=== PATIENT | female | born 1960 | race Caucasian/White ===

== ENCOUNTER → 2019-12-01 10:46 | Outpatient (BNVA) | payer MEDICAID, SELFPAY | PROVIDERS: Family Provider Family Medicine; PCP Family Medicine; Visit Provider Anesthesiology | DX: G89.29 Other chronic pain (principal); M43.17 Spondylolisthesis, lumbosacral region; M19.90 Unspecified osteoarthritis, unspecified site; F17.210 Nicotine dependence, cigarettes, uncomplicated; Z79.891 Long term (current) use of opiate analgesic | CPT/HCPCS: 99204 ==

== ENCOUNTER 2020-06-27 09:19 | Observation (INO) | payer MEDICAID, SELFPAY ==
[2020-06-25 09:37] VITALS: BMI 22.6
--- NOTE | 2020-06-25 10:23 | ANES.PREANE2 ---
Pre-Anesthetic Assessment Pre-Anesthetic Assessment: Height/Weight: Height 1.68 m Weight 63.503 kg Preop Diagnosis: POP-Q stage 2 cystocele Proposed Procedure: Operation Date: 06/27/20 07:00 Proposed Procedures p Total Vaginal Hysterectomy [facility]/[id number] N81.10 R32(Not Applicable) - Claudy Mcneil MD s Anterior Repair Anterior Colporrhaphy(Not Applicable) - Claudy Mcneil MD s Sling/Midurethral single incision sling/Sacrospinal ligament fixation(Not Applicable) - Claudy Mcneil MD Familial anesthetic complications: none Social: Packs per day: 1 Pack years: years Exam: Pre-Anes Outpt Exam: alert, oriented x 3 and clear to auscultation bilaterally Additional Exam Findings (including area of procedure): expiratory wheezes Airway: Submandibular: WNL Cervical ROM: WNL MP: 1 Dentition: Partials (uppers) Pulmonary: Pulmonary: Cough GI: GI: GERD (well controlled) Anesthetic Plan: ASA status: 3 Anesthesia: Anesthesia Evaluation and General PFSH Anesthesia PFSH: Medical History Arthritis Current every day smoker Urinary incontinence Surgical History H/O breast biopsy Family History Mother Breast cancer, Onset Age: 82 Ovarian cancer Uterine cancer Hyperlipidemia Sister Breast cancer Ovarian cancer Uterine cancer Clotting disorder Stroke Thyroid condition Father Anesthesia complication Brother Clotting disorder CAD (coronary artery disease) Son Diabetes Denies family history of Bleeding disorder Hypertension Social History (Updated 06/25/20 @ 08:03 by Moni Carreon RN) Smoking and tobacco status: current every day smoker cigarettes Packs smoked per day: 1 Alcohol intake: current Alcohol intake frequency: holidays/special occasions only Alcohol type: hard liquor Substance/Drug Use: never Data Anesthesia CBC & Chem 7: 06/25/20 09:55 Cardiac Studies: No Data to Display
[2020-06-25 10:59] LABS: Basophils # 0.1 10^3/uL (0.0-0.1); Eosinophils # 0.1 10^3/uL (0.0-0.8); Eosinophils % 1.5 %; Hematocrit 44.3 % (37.0-47.0); Hemoglobin 14.5 g/dL (11.5-15.3); Lymphocytes # 2.2 10^3/uL (0.8-4.8); Lymphocytes % 25.7 %; Mean Corpuscular HGB Conc 32.7 g/dL (30.0-36.0); Mean Corpuscular Volume 91.7 fL (81-99); Mean Platelet Volume 10.4 fL (7.4-10.4); Monocytes # 0.4 10^3/uL (0.2-0.9); Monocytes % 5.1 %; Neutrophils # 5.78 10^3/uL (1.8-7.7); Neutrophils % 66.5 %; Nucleated Red Blood Cells % 0 %; Platelet Count 450 10^3/cmm (130-400); Red Blood Count 4.83 10^6/uL (4.1-5.3); Red Cell Distribution Width 11.7 % (12.1-15.1); White Blood Count 8.7 10^3/uL (4.0-10.0)
[2020-06-25 12:36] LABS: Add Urine Microscopic? NO
[2020-06-25 12:40] LABS: Bilirubin Urine Neg (NEGATIVE); Blood Urine Neg (Negative); Glucose Urine UA Norm (Normal); Ketones Urine Negative (Negative); Leukocyte Esterase Urine Negative (Negative); Nitrate Urine Negative (Negative); Protein Urine Neg (Negative); Specific Gravity, Urine 1.015 (1.005-1.030); Urine Appearance Clear (CLEAR); Urine Color Yellow (Yellow); Urobilinogen Urine Norm (Negative); pH Urine 6.5 (5-7)
[2020-06-27] VITALS (19 sets, daily range): BP systolic 111–147; BP diastolic 70–101; PULSE 86–99; RESP 13–22; TEMP 36.4–37; O2SAT 93–99
--- NOTE | 2020-06-27 06:39 | W.PM.OPSUD ---
Surgery/Procedure H&P Update DATE OF PROCEDURE: June 27, 2020 DATE H&P PERFORMED: 06/25/20 H&P UPDATE INFORMATION: I have reviewed H&P completed within last 30 days, I have examined patient prior to procedure and No changes to prior documentation PREOP DIAGNOSIS: POP-Q stage 2 cystocele PLANNED PROCEDURE: Operation Date: 06/27/20 07:00 Proposed Procedures p Total Vaginal Hysterectomy TV/[id number] N81.10 R32(Not Applicable) - Claudy Mcneil MD s Anterior Repair Anterior Colporrhaphy(Not Applicable) - Claudy Mcneil MD s Sling/Midurethral single incision sling/Sacrospinal ligament fixation(Not Applicable) - Claudy Mcneil MD
[2020-06-27] MEDS: scopolamine 1.5 Patch 1 PATCH TRANSDERMA (07:05)
[2020-06-27] MEDS: sodium chloride 0.9% 1,000 ML 30 ML IV (07:06)
[2020-06-27] MEDS: metroNIDAZOLE IV 500 MG/100 ML PREMIX 100 MG IV (07:19)
--- NOTE | 2020-06-27 07:36 | SUR.PREOP ---
pt arrived at 0615 from registration and stated she was here at 0550 and didn't know who to ask for information pt had 1000 cc of soap suds enema per dr barbour's order and unable to give lr for iv due to not loaded in pyxis 0630 dr barbour here and no orders for antibiotic,order put in computer
[2020-06-27 07:46] LABS: Alanine Aminotransferase 19 U/L (0-33); Albumin Level 4.4 g/dL (3.5-5.2); Alkaline Phosphatase 154 IU/L (35-105); Anion Gap 13.8 (5-19); Aspartate Amino Transferase 25 U/L (0-32); Blood Urea Nitrogen 12 mg/dL (8-23); Calcium 9.1 mg/dL (8.5-10.5); Carbon Dioxide 25 mmol/L (22-29); Chloride 104 mmol/L (98-107); Globulin 3.4 g/dL (1.3-4.6); Glucose 132 mg/dL (65-115); Osmolality Calculated 286 mOsm/kg (285-295); Potassium 3.8 mmol/L (3.5-5.1); Sodium 139 mmol/L (136-145); Total Bilirubin 0.2 mg/dL (0.15-1.2); Total Protein 7.8 g/dL (6.6-8.7)
[2020-06-27] MEDS: estrogens Conjugated Cream 30 gm 1 APPLIC VAGINAL (09:20)
--- NOTE | 2020-06-27 09:22 | P.OP_ITS ---
Operative Report Date of procedure: June 27, 2020 Pre-op Diagnosis: POP-Q stage 2 cystocele Post-op diagnosis: same Procedure Done: Vaginal hysterectomy with bilateral uterosacral ligament suspension and mid urethral sling Specimens removed/disposition: Uterus Surgeon: Claudy Mcneil Anesthesia: General Estimated blood loss (mL): 50 IV fluids (mL): 1,200 Urine output (mL): 200 Complications: None Condition: stable Disposition: PACU Brief History: 60-year-old femaleWith urinary stress incontinence and cystocele stage II Procedure: After informed consent and risks, benefits, indications and alternatives reviewed with the patient was taken to the operating room. The patient was placed in dorsal lithotomy position prepped, and draped in the usual sterile fashion. The pre-procedure timeout verifying the correct patient, procedure, site and side, could not requirements was performed and acknowledge by the OR team. A Nelson catheter was placed. A Bookwalter vaginal retractor was placed into the vagina in usual manner visualize the cervix. Cervix was grasped with a single tooth tenaculum and circumferentially infiltrated with 1% Xylocaine with epinephrine. Then cervix was circumferentially incised with bovie and the bladder was dissected off the pubovesical cervical fascia anteriorly with a sponge stick and Metzenbaum scissors. The anterior peritoneal reflection was identified and the anterior cul-de-sac was entered sharply with Metzenbaum scissors. The same procedure was performed posteriorly and a posterior colpotomy was made through the posterior cul-de-sac space without difficulty and the posterior blade of the Bookwalter vaginal retractor was adv anced posteriorly into the cul-de-sac. At this time, the left and right uterosacral ligaments were isolated and ligated with 0 Vicryl. The Enseal device was placed over the uterosacral ligaments on either side and was then used in a serial fashion up through the cardinal ligaments bilaterally cross-clamped, cut, and sealed with the Enseal device. Finally, the uterine arteries were cross-clamped, cut, sealed and ligated with the Enseal device. Hemostasis was assured. The broad ligaments were then serially clamped, sealed and cut with the Enseal device on both sides. Excellent hemostasis was visualized. Both cornua were clamped, sealed and cut with the Enseal device. Then the pedicles were then suture ligated with excellent hemostasis. The uterus was excised and submitted for pathologic evaluation. No other abnormalities were noted in the pelvic cavity. The peritoneum was then closed in a pursestring fashion with 0 Vicryl suture. The vaginal cuff angles were closed with [id number] #0 Vicryl suture on both sides and transfixed with the ipsilateral cardinal and uterosacral ligaments. The remainder of the vaginal cuff was closed with #0 Vicryl in a running locked fashion. At this time, instruments were removed from the vagina at hemostasis assured. The anterior vaginal mucosa beneath the midurethra was infiltrated with 0.5% Marcaine with epinephrine. A vertical midline incision was made beneath the midurethra, nearly 1.5 cm length. Careful submucosal dissection was performed bilaterally up to the interior portion of the inferior pubic ramus. The insertion of adductor longus tendon on the patient?s pubic ramus was identified as reference land antonette. Palpated the notch along the internal edge of ischiopubic ramus where the adductor longus tendon and the inferior pubic ramus meet. The needle of the SIS inserted aiming at the location of this notch. One of the integrated self-fixating tips place onto the needle by sliding it over the end of the needle. The needle/sling assembly was inserted toward the location of identified reference notch making sure that the flat of the handle is perpendicular to the desired path. The needle was tracked along the posterior surface of the ischiopubic ramus until the midline antonette on the mesh is approximately at the midline position under the urethra. The needle was removed and the same was repeated on the contralateral side until the appropriate sling tension under the urethra was achieved ensuring that the mesh lays flat. The needle was removed and vaginal incision was closed in a running interlocking fashion with 2-0 Vicryl. Then the Nelson catheter was removed and cystoscope was inserted. The bladder was filled with sterile water. Complete evaluation of the bladder mucosa was performed noting no lacerations, dimpling, tears, bleeding of the mucosa or muscular layers. Both ureteral orifices were identified. Prompt excretion of urine from both ureteral orifices was noted. Cystoscope was withdrawn. Nelson catheter was then placed yielding clear sosa urine. A vaginal packing with Premarin cream was placed and the patient was taken out of dorsal lithotomy position and awakened from the general anesthesia. The patient tolerated the procedure well and was taken to the PACU recovery room in a stable condition. Sponge, lap, needle and instruments counts were correct x3.
[2020-06-27] MEDS: ondansetron 2 mg/ML SDV 2 mL 4 MG IVP ×2 (09:23→09:30)
[2020-06-27] MEDS: metoclopramide 5 mg/mL SDV 2 mL 10 MG IVP ×2 (09:39→09:46)
[2020-06-27] MEDS: dexamethasone 4 mg/mL INJ IVP (09:52)
[2020-06-27] MEDS: dextrose 5%-lactated ringers 1,000 ML 125 ML IV ×2 (15:25→23:54)
[2020-06-27] MEDS: ketorolac 30 mg/mL INJ IVP ×2 (16:28→23:56)
[2020-06-27] MEDS: docusate sodium 100 mg Capsule PO (18:24)
[2020-06-27] MEDS: fluticasone nasal spray 16gm Btl 1 SPRAY INTRANASAL (18:24)
[2020-06-27] MEDS: gabapentin 400 mg Capsule 800 MG PO (18:24)
--- NOTE | 2020-06-27 21:12 | PC.NURSE ---
this tech ambulated pt in hallway. 2 laps. no issues. pt asked for h/a meds and something salty since she was craving a cigarette. pt nurse notified.
[2020-06-27] MEDS: acetaminophen 325 mg Tablet 650 MG PO (21:21)
[2020-06-28 00:25] VITALS: PULSE 91; RESP 18; O2SAT 95
[2020-06-28 06:00] VITALS: BP 119/72; PULSE 77; RESP 16; TEMP 36.8; O2SAT 96
[2020-06-28 06:03] LABS: Hematocrit 34.5 % (37.0-47.0); Mean Corpuscular HGB Conc 31.9 g/dL (30.0-36.0); Mean Platelet Volume 10.2 fL (7.4-10.4); Platelet Count 320 10^3/cmm (130-400); Red Blood Count 3.67 10^6/uL (4.1-5.3); Red Cell Distribution Width 11.5 % (12.1-15.1); White Blood Count 14.7 10^3/uL (4.0-10.0)
[2020-06-28] MEDS: dextrose 5%-lactated ringers 1,000 ML 125 ML IV (07:57)
[2020-06-28] MEDS: HYDROcodone-acetaminophen 5-325 mg Tablet PO (07:57)
[2020-06-28 09:39] VITALS: PULSE 89; RESP 18; O2SAT 92
[2020-06-28] MEDS: cetirizine 10 mg Tablet PO (09:47)
[2020-06-28] MEDS: docusate sodium 100 mg Capsule PO (09:47)
[2020-06-28] MEDS: duloxetine 30 mg Capsule PO (09:47)
[2020-06-28] MEDS: gabapentin 400 mg Capsule 800 MG PO (09:47)
[2020-06-28] MEDS: fluticasone nasal spray 16gm Btl 1 SPRAY INTRANASAL (09:47)
[2020-06-28] MEDS: pantoprazole DR 40 mg Tablet PO (09:47)
[2020-06-28] MEDS: meloxicam 7.5 mg tablet 15 MG PO (09:47)
[2020-06-28] MEDS: montelukast sodium 10 mg Tablet PO (09:47)
[2020-06-28 09:51] VITALS: BP 143/77; PULSE 92; RESP 15
--- NOTE | 2020-06-28 10:56 | PM.OBGYDC ---
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 DEVELOPER Date of Admission: 06/27/20 09:19 Date of Discharge: 06/28/20 Attending Provider at Admission: Claudy Mcneil MD Attending Provider at Discharge: Claudy Mcneil MD Primary Care Provider: Jerzy Schafer MD Diagnoses at Discharge Discharge Diagnosis (1) POP-Q stage 2 cystocele: Status: Acute (2) MERLE (stress urinary incontinence, female): Status: Acute Reason for Visit Reason for Visit: Cystocele stage 2 urinary incontinence Hospital Course Hospital Course: 60-year-old female admitted for cystocele stage II a stress urinary incontinence for a total vaginal hysterectomy and mid urethral sling. Total vaginal hysterectomy with uterosacral ligament suspension and mid urethral sling were performed without complications. Overnight postop observation was uneventful. Patient denies any significant pain, or vaginal bleeding. Voiding without difficulty. Tolerating diet well. Ambulating without difficulty Physical Exam Narrative: EXAM NARRATIVE: GA: Alert and oriented ?3. HEENT: WNL. Heart: Regular rate and rhythm. Lungs: Clear to auscultation bilaterally. Abdomen: Bowel sounds present, nontender, minimal tenderness, pain or edema. TARGET WORKER: No bleeding. Extremities: No edema, no cyanosis, no calves pain. Urinary Catheter Management^: Nelson: Cath Placed During This Visit: yes Urinary Catheter Date of Insertion: 06/27/20 Urinary Catheter Time of Insertion: 08:00 Discharge Data Data Completed and Pending: Pending at discharge Category Date Time Status Pathology: Surgic al [PTH] Routine Pth 06/27/20 08:29 Received Labs from last 24 hours 06/28/20 06/28/20 06:00 05:15 WBC 14.7 H Cancelled Corrected WBC Cancelled RBC 3.67 L Cancelled Hgb 11.0 L Cancelled Hct 34.5 L Cancelled MCV 94.0 Cancelled MCH 30.0 Cancelled MCHC 31.9 Cancelled RDW 11.5 L Cancelled Plt Count 320 Cancelled MPV 10.2 Cancelled Vitals: Last Vital Signs Temp 98.2 F 06/28/20 06:00 Pulse 92 06/28/20 09:51 Resp 15 06/28/20 09:51 BP 143/77 06/28/20 09:51 Pulse Ox 92 06/28/20 09:39 Discharge Plan Discharge Patient Disposition: Home Condition: Stable Prescriptions: New ibuprofen 800 mg tablet 800 mg PO TID PRN (Reason: pain) Qty: 60 RF: 0 Continued buspirone 5 mg tablet 5 mg PO ONCE PRN (Reason: Anxiety) RF: 0 duloxetine [Cymbalta] 30 mg capsule,delayed release(DR/EC) 30 mg PO DAILY RF: 0 fluticasone propionate 50 mcg/actuation spray,suspension 1 spray INTRANASAL BID RF: 0 gabapentin 800 mg tablet 800 mg PO BID RF: 0 meloxicam 15 mg tablet 15 mg PO DAILY RF: 0 Prilosec OTC 20 mg tablet,delayed release (DR/EC) 20 mg PO DAILY RF: 0 promethazine 25 mg tablet 25 mg PO QID PRN (Reason: Nausea) RF: 0 montelukast [Singulair] 10 mg tablet 10 mg PO DAILY RF: 0 cetirizine 10 mg tablet 10 mg PO DAILY RF: 0 eletriptan [Relpax] 20 mg tablet 20 mg PO DAILY PRN (Reason: Migraine Headache) RF: 0 albuterol sulfate [Proventil HFA] 90 mcg/actuation HFA aerosol inhaler 2 puff INHALATION QID PRN (Reason: asthma) RF: 0 Discharge Orders: Discharge Order (Routine); Ordered 06/28/20 Ordered By: Claudy Mcneil Referrals: Claudy Mcneil MD [Physician] - 07/09/20 3:00 pm (* Your 2 week incision check is with Dr. Mcneil on 07/09/2020 at 3:00pm. * Your 6 week follow up appointment is with Dr. Mcneil on 08/07/2020 at 2:15pm.) Discharge Diet: As Directed Discharge Activity: Increase activity as tolerated Patient Instructions: Vaginal Hysterectomy (DC), OB Abdominal Surgery - [facility], OB Discharge Report, OB Anesthesia Instructions, OB Food/Drug Interaction Guide Activity Restrictions/Additional Instructions: Pelvic rest for 6 weeks (no sex, no tampons, no vaginal douches). Return to the emergency room if any fever, increased bleeding or pain. 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
[2020-06-28 11:21] VITALS: BP 143/77; PULSE 92; RESP 15
--- NOTE | 2020-06-29 11:56 | PC.RESP ---
Smoking Cessation sent to patient.
== END 2020-06-28 11:30 | disposition home or self-care (01) ==
LOC: OBGYN 09:19
PROVIDERS: Admitting Provider Obstetrics & Gynecology; PCP Family Medicine; Visit Provider Obstetrics & Gynecology
PROC: (CPT 57283; principal; 2020-06-27 07:00)
PROC: (CPT 57288; 2020-06-27 07:00)
DX: N39.3 Stress incontinence (female) (male) (principal); N81.10 Cystocele, unspecified; F17.210 Nicotine dependence, cigarettes, uncomplicated
CPT/HCPCS: 57283; 57288; 58260; 12345; 36415; 51702; 51798; 80053; 81003; 85025; 85027; 86850; 86900; 88307; 96361; 96365; 96366; 96375; C1713; G0378; J1100; J1580; J1885; J2370; J2405; J2704; J2710; J2765; J3010; J3490; J7030; S0030

== ENCOUNTER 2020-07-18 09:40 | Observation (INO) | payer MEDICAID, SELFPAY ==
[2020-07-18] VITALS (27 sets, daily range): BP systolic 70–148; BP diastolic 45–100; PULSE 86–107; RESP 15–22; TEMP 36.2–37.1; O2SAT 93–100; BMI 24.0
--- NOTE | 2020-07-18 10:02 | ED_ITS ---
HPI - Female Genitourinary General: Chief complaint: Vaginal Bleeding Stated complaint: HEAVY BLEEDING Time Seen by Provider: 07/18/20 09:46 History of Present Illness: HPI Narrative: 60-year-old female who presents to the emergency room with a complaint of vaginal bleeding. Vaginal bleeding began overnight and has been extremely heavy EMS reports 250-350 mils in the bed at the time they arrived she is probably had another 200+ mils since then when I initially examined her after arrival here. States she had a laparoscopic- assisted vaginal hysterectomy on 06/27/2020 had been doing well up until now she is not on any blood thinners. Denies any sexual intercourse or any thing intravaginal. MD elicited complaint: vaginal bleeding Pertinent past history: hysterectomy Onset (ago): hour(s) Location of symptoms: vaginal Severity: moderate Female Urogenital Radiation: Non-Radiating Quality of pain: cramping Consistency: intermittent Vaginal discharge: none Vaginal bleeding: heavy and bright red Exacerbating factors: none Relieving factors: none Associated symptoms: Reports abdominal pain; Deny short of breath, fevers/chills, headache(s), nausea, rash, seizures, syncope, vaginal discharge or weakness Review of Systems Const: Denies: fever(s), chills, body aches, change in appetite, fatigue or malaise ENMT: Denies: throat pain, ear or mastoid pain, nasal discharge or nasal congestion Card: Denies: syncope Resp: Denies: dyspnea, productive cough or non-productive cough GI: Reports: abdominal pain; Denies: nausea : Denies: vaginal discharge Skin/Breast: Denies: rash or pruritus Neuro: Denies: headache(s) PFS ED PFSH: Medical History (Updated 07/20/20 @ 07:45 by Derrick Quiroz DO) Aftercare following surgery of the genitourinary system Arthritis Current every day smoker Urinary incontinence Surgical History (Updated 07/20/20 @ 07:45 by Derrick Quiroz DO) H/O breast biopsy Family History Mother Breast cancer, Onset Age: 82 Ovarian cancer Uterine cancer Hyperlipidemia Sister Breast cancer Ovarian cancer Uterine cancer Clotting disorder Stroke Thyroid condition Father Anesthesia complication Brother Clotting disorder CAD (coronary artery disease) Son Diabetes Denies family history of Bleeding disorder Hypertension Social History Smoking and tobacco status: current every day smoker cigarettes Packs smoked per day: 1 Alcohol intake: current Alcohol intake frequency: holidays/special occasions only Alcohol type: hard liquor Physical Exam Const: COMMON NORMALS: no acute distress GENERAL APPEARANCE: cooperative and comfortable ORIENTATION/CONSCIOUSNESS: Yes awake, Yes oriented to person, Yes oriented to place and Yes oriented to time HENMT: COMMON NORMALS: normocephalic, atraumatic and hearing grossly normal bilaterally HEAD & SCALP: normocephalic and atraumatic Eye: COMMON NORMALS: Equal, round and reactive pupils present, EOMs intact bilaterally, conjunctivae normal and no scleral icterus CONJUNCTIVA: Yes conjunctivae normal PUPIL: Yes Equal, round and reactive pupils present Neck/C-Spine: COMMON NORMALS: full ROM, no lymphadenopathy, supple and no JVD Lymph: LYMPHATIC: no lymphadenopathy noted and no lymphedema noted Resp: COMMON NORMALS: normal respiratory effort, No retractions, No use of accessory muscles and clear to auscultation bilaterally AUSCULTATION: clear to auscultation bilaterally Cardio: COMMON NORMALS: no JVD, regular rate, regular rhythm and No murmurs present (Cardio) RATE: regular rate RHYTHM: regular rhythm GI: COMMON NORMALS: Soft to palpation and No hepatosplenomegaly present AUSCULTATION: Yes normoactive bowel sounds PALPATION: Yes Soft to palpation, No Tenderness to palpation present (GI), No Guarding due to palpation present (GI) and Yes No hepatosplenomegaly present : OTHER: Bedside bimanual exam large amount of clots in the vaginal vault no defect in the vaginal cuff noted aggressive exam not done with palpation suprapubic only small amount of bleeding noted. Excess of 200 mL of blood present on the bed when I did the exam. Extremity: COMMON NORMALS: normal to inspection, capillary refill normal, no clubbing, cyanosis or edema, no calf tenderness and no pedal edema Neuro: SENSORIUM/ORIENTATION: Yes oriented to person, Yes oriented to place and Yes oriented to time Skin: COMMON NORMALS: no rashes or lesions noted GENERAL SKIN EXAM: no rashes or lesions noted Course Vital Signs: Vital signs: Vital Signs Temperature 98.4 F 07/19/20 15:14 Pulse Rate 96 07/19/20 15:14 Respiratory Rate 18 07/19/20 15:14 Blood Pressure 128/81 07/19/20 15:14 Pulse Oximetry 100 07/19/20 15:14 MDM - Female MDM Narrative: Medical decision making narrative: Because this is Dr. Mcneil this patient he was contacted he wished to see the patient. He was contacted around 10 45-10 50 advised that he would be down to see the room see the patient shortly orders written for observation. 13 15. Patient continuing to have bleeding hemoglobin down to 9.6. Dr. Mcneil contacted again via phone. He was asked to come to the emergency room emergently to evaluate patient. Lab Data: Labs: Lab Results 07/18/20 07/18/20 07/18/20 Range/Units 10:26 10:26 10:26 WBC 7.1 (4.0-10.0) 10^3/ uL RBC 3.34 L (4.1-5.3) 10^6/u L Hgb 10.0 L (11.5-15.3) g/dL Hct 31.8 L (37.0-47.0) % MCV 95.2 (81-99) fL MCH 29.9 (28.0-34.0) pg MCHC 31.4 (30.0-36.0) g/dL RDW 12.2 (12.1-15.1) % Plt Count 373 (130-400) 10^3/c mm MPV 9.9 (7.4-10.4) fL Neut % (Auto) 62.7 % Lymph % (Auto) 25.6 % [place] % (Auto) 8.6 % Eos % (Auto) 2.1 % Baso % (Auto) 0.7 % Neut # (Auto) 4.42 (1.8-7.7) 10^3/u L Lymph # (Auto) 1.8 (0.8-4.8) 10^3/u L [place] # (Auto) 0.6 (0.2-0.9) 10^3/u L Eos # (Auto) 0.2 (0.0-0.8) 10^3/u L Baso # (Auto) 0.1 (0.0-0.1) 10^3/u L Nucleated RBC % (a uto) 0 % Nucleated RBCs # 0.0 /100WBC PT 12.80 (12.1-14.9) SECO NDS INR 0.94 (0.8-1.2) APTT 28.3 (23.9-36.7) SECO NDS Sodium (136-145) mmol/L Potassium (3.5-5.1) mmol/L Chloride (98-107) mmol/L Carbon Dioxide (22-29) mmol/L Anion Gap (5-19) BUN (8-23) mg/dL Creatinine (0.5-0.9) mg/dL GFR Calculation (90-130) mL/min Glucose (65-115) mg/dL Calculated Osmolal ity (285-295) mOsm/k g Calcium (8.5-10.5) mg/dL Total Bilirubin (0.15-1.2) mg/dL AST (0-32) U/L ALT (0-33) U/L Alkaline Phosphata se (35-105) IU/L Total Protein (6.6-8.7) g/dL Albumin (3.5-5.2) g/dL Globulin (1.3-4.6) g/dL Blood Type A Positive Rho(D) Type Positive Antibody Screen Negative Crossmatch See Detail 07/18/20 Range/Units 10:26 WBC (4.0-10.0) 10^3/ uL RBC (4.1-5.3) 10^6/u L Hgb (11.5-15.3) g/dL Hct (37.0-47.0) % MCV (81-99) fL MCH (28.0-34.0) pg MCHC (30.0-36.0) g/dL RDW (12.1-15.1) % Plt Count (130-400) 10^3/c mm MPV (7.4-10.4) fL Neut % (Auto) % Lymph % (Auto) % [place] % (Auto) % Eos % (Auto) % Baso % (Auto) % Neut # (Auto) (1.8-7.7) 10^3/u L Lymph # (Auto) (0.8-4.8) 10^3/u L [place] # (Auto) (0.2-0.9) 10^3/u L Eos # (Auto) (0.0-0.8) 10^3/u L Baso # (Auto) (0.0-0.1) 10^3/u L Nucleated RBC % (a uto) % Nucleated RBCs # /100WBC PT (12.1-14.9) SECO NDS INR (0.8-1.2) APTT (23.9-36.7) SECO NDS Sodium 141 (136-145) mmol/L Potassium 3.4 L (3.5-5.1) mmol/L Chloride 107 (98-107) mmol/L Carbon Dioxide 26 (22-29) mmol/L Anion Gap 11.4 (5-19) BUN 12 (8-23) mg/dL Creatinine 0.6 (0.5-0.9) mg/dL GFR Calculation 102.0 (90-130) mL/min Glucose 130 H (65-115) mg/dL Calculated Osmolal ity 290 (285-295) mOsm/k g Calcium 8.7 (8.5-10.5) mg/dL Total Bilirubin 0.2 (0.15-1.2) mg/dL AST 14 (0-32) U/L ALT 11 (0-33) U/L Alkaline Phosphata se 142 H (35-105) IU/L Total Protein 6.4 L (6.6-8.7) g/dL Albumin 3.6 (3.5-5.2) g/dL Globulin 2.8 (1.3-4.6) g/dL Blood Type Rho(D) Type Antibody Screen Crossmatch Discharge Plan Discharge Patient Disposition: Placed in Observation Admit Provider: Claudy Mcniel Clinical Impression: Vaginal bleeding, Status post vaginal hysterectomy Condition: Stable Interventions: ED Discharge Assessment Last Done: 07/18/20 14:44 ED Charges Last Done: 07/18/20 12:07 Discharge Date/Time: 07/18/20 14:46 Coding Level of Care Code ED Engineer [employer] for [employer] Fwd Exam Comprehensive
[2020-07-18 10:38] LABS: Basophils # 0.1 10^3/uL (0.0-0.1); Basophils % 0.7 %; Eosinophils # 0.2 10^3/uL (0.0-0.8); Eosinophils % 2.1 %; Hematocrit 31.8 % (37.0-47.0); Lymphocytes # 1.8 10^3/uL (0.8-4.8); Lymphocytes % 25.6 %; Mean Corpuscular HGB Conc 31.4 g/dL (30.0-36.0); Mean Corpuscular Hemoglobin 29.9 pg (28.0-34.0); Mean Corpuscular Volume 95.2 fL (81-99); Mean Platelet Volume 9.9 fL (7.4-10.4); Monocytes # 0.6 10^3/uL (0.2-0.9); Monocytes % 8.6 %; Neutrophils # 4.42 10^3/uL (1.8-7.7); Neutrophils % 62.7 %; Nucleated Red Blood Cells % 0 %; Platelet Count 373 10^3/cmm (130-400); Red Blood Count 3.34 10^6/uL (4.1-5.3); Red Cell Distribution Width 12.2 % (12.1-15.1); White Blood Count 7.1 10^3/uL (4.0-10.0)
[2020-07-18 10:50] LABS: INR 0.94 (0.8-1.2); Partial Thromboplastin Time 28.3 SECONDS (23.9-36.7)
[2020-07-18 10:55] LABS: Alanine Aminotransferase 11 U/L (0-33); Albumin Level 3.6 g/dL (3.5-5.2); Alkaline Phosphatase 142 IU/L (35-105); Anion Gap 11.4 (5-19); Aspartate Amino Transferase 14 U/L (0-32); Blood Urea Nitrogen 12 mg/dL (8-23); Calcium 8.7 mg/dL (8.5-10.5); Carbon Dioxide 26 mmol/L (22-29); Chloride 107 mmol/L (98-107); Globulin 2.8 g/dL (1.3-4.6); Glucose 130 mg/dL (65-115); Osmolality Calculated 290 mOsm/kg (285-295); Potassium 3.4 mmol/L (3.5-5.1); Sodium 141 mmol/L (136-145); Total Bilirubin 0.2 mg/dL (0.15-1.2); Total Protein 6.4 g/dL (6.6-8.7)
--- NOTE | 2020-07-18 11:06 | US_ITS ---
WS: [id number] TRANSABDOMINAL PELVIC ULTRASOUND HISTORY: vaginal bleeding post op hysterectomy COMPARISON: None available. Status post hysterectomy. No midline mass. Right ovary: 4.4 cm x 2.8 cm x 2.6 cm; no solid or cystic mass. Normal vascularity. Left ovary: 2.2 cm x 2.0 cm x 1.2 cm; no solid or cystic mass. Normal vascularity. No free fluid in the cul-de-sac. US/US pelvic complete* [id number] IMPRESSION: 1. Prior hysterectomy. No midline mass or hematoma. No abnormality at the vagi nal cuff. 2. Unremarkable bilateral ovaries.
--- NOTE | 2020-07-18 12:05 | PC.NURSE ---
Attempted to call report, was informed that there was a patient in room at this time, and that the patient would need to be discharged along with the room needing to be cleaned.
[2020-07-18 12:51] LABS: Hemoglobin 9.6 g/dL (11.5-15.3)
--- NOTE | 2020-07-18 14:05 | P.ANESASSM_ITS ---
Pre-Anesthetic Assessment Pre-Anesthetic Assessment: Height/Weight: Height 1.63 m Weight 63.503 kg Temp Pulse Resp BP Pulse Ox 97.2 F L 95 18 107/77 100 07/18/20 13:57 07/18/20 13:57 07/18/20 13:57 07/18/20 13:57 07/18/20 13:57 Preop Diagnosis: POP-Q stage 2 cystocele Proposed Procedure: Operation Date: 07/18/20 15:00 Proposed Procedures p Vaginal cuff repair(Not Applicable) - Claudy Mcneil MD Familial anesthetic complications: none Was Beta [place] taken within 24 hours: N/A Last intake: Intake NPO > 8 hrs Last Liquid Date 07/18/20 Last Liquid Time 04:00 Last Solid Date 07/17/20 Last Solid Time 20:00 Social: Social History: Tobacco and No alcohol Exam: Pre-Anes Outpt Exam: alert, oriented x 3, clear to auscultation bilaterally and regular rate & rhythm Airway: Cervical ROM: WNL MP: 2 Dentition: False GI: GI: GERD Anesthetic Plan: ASA status: 2 Anesthesia: General Risk of > 500 ml blood loss (7ml/kg in children): No PFSH Anesthesia PFSH: Medical History (Updated 07/09/20 @ 16:17 by Claudy Mcneil MD) Aftercare following surgery of the genitourinary system Arthritis Current every day smoker Urinary incontinence Surgical History H/O breast biopsy Family History Mother Breast cancer, Onset Age: 82 Ovarian cancer Uterine cancer Hyperlipidemia Sister Breast cancer Ovarian cancer Uterine cancer Clotting disorder Stroke Thyroid condition Father Anesthesia complication Brother Clotting disorder CAD (coronary artery disease) Son Diabetes Denies family history of Bleeding disorder Hypertension Social History Smoking and tobacco status: current every day smoker cigarettes Packs smoked per day: 1 Alcohol intake: current Alcohol intake frequency: holidays/special occasions only Alcohol type: hard liquor Data Anesthesia CBC & Chem 7: 07/18/20 12:47 07/18/20 10:26 Other Labs: Laboratory Results - last 48 hr 07/18/20 07/18/20 07/18/20 10:26 10:26 10:26 WBC 7.1 RBC 3.34 L Hgb 10.0 L Hct 31.8 L MCV 95.2 MCH 29.9 MCHC 31.4 RDW 12.2 Plt Count 373 MPV 9.9 Neut % (Auto) 62.7 Lymph % (Auto) 25.6 [place] % (Auto) 8.6 Eos % (Auto) 2.1 Baso % (Auto) 0.7 Neut # (Auto) 4.42 Lymph # (Auto) 1.8 [place] # (Auto) 0.6 Eos # (Auto) 0.2 Baso # (Auto) 0.1 Nucleated RBC % (auto) 0 Nucleated RBCs # 0.0 PT 12.80 INR 0.94 APTT 28.3 Sodium Potassium Chloride Carbon Dioxide Anion Gap BUN Creatinine GFR Calculation Glucose Calculated Osmolality Calcium Total Bilirubin AST ALT Alkaline Phosphatase Total Protein Albumin Globulin Blood Type A Positive Rho(D) Type Positive Antibody Screen Negative 07/18/20 07/18/20 10:26 12:47 WBC RBC Hgb 9.6 L Hct MCV MCH MCHC RDW Plt Count MPV Neut % (Auto) Lymph % (Auto) [place] % (Auto) Eos % (Auto) Baso % (Auto) Neut # (Auto) Lymph # (Auto) [place] # (Auto) Eos # (Auto) Baso # (Auto) Nucleated RBC % (auto) Nucleated RBCs # PT INR APTT Sodium 141 Potassium 3.4 L Chloride 107 Carbon Dioxide 26 Anion Gap 11.4 BUN 12 Creatinine 0.6 GFR Calculation 102.0 Glucose 130 H Calculated Osmolality 290 Calcium 8.7 Total Bilirubin 0.2 AST 14 ALT 11 Alkaline Phosphatase 142 H Total Protein 6.4 L Albumin 3.6 Globulin 2.8 Blood Type Rho(D) Type Antibody Screen Cardiac Studies: No Data to Display
--- NOTE | 2020-07-18 16:22 | PM.OBGYHP ---
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 Refers starting with significant bleeding this AM. She admits that she had not been following Postop instructions, and that she may have been more active than she should have. Review of Systems Const: Denies: fever(s), chills, body aches, change in appetite, fatigue or malaise ENMT: Denies: throat pain, ear or mastoid pain, nasal discharge or nasal congestion Card: Denies: syncope Resp: Denies: dyspnea, productive cough or non-productive cough GI: Reports: abdominal pain; Denies: nausea : Reports: vaginal bleeding (since this AM) Skin/Breast: Denies: rash or pruritus Neuro: Denies: headache(s) Medications/Allergies Home Medications Medication Instructions Recorded Confirmed Last Taken Type duloxetine 30 mg capsule,delayed 30 mg PO DAILY cap 11/30/19 07/18/20 07/17/20 History release fluticasone propionate 50 2 spray INTRANASAL DAILY 11/30/19 07/18/20 07/17/20 History mcg/actuation nasal spray,suspension gabapentin 800 mg tablet 800 mg PO TID 11/30/19 07/18/20 07/17/20 History meloxicam 15 mg tablet 15 mg PO DAILY 11/30/19 07/18/20 07/17/20 History montelukast 10 mg tablet 10 mg PO DAILY 11/30/19 07/18/20 07/17/20 History omeprazole magnesium 20 mg 20 mg PO BID tab 11/30/19 07/18/20 07/17/20 History tablet,delayed release promethazine 25 mg tablet 25 mg PO QID PRN 11/30/19 07/18/20 Unknown History albuterol sulfate 90 mcg/actuation 2 puff INHALATION QID PRN 12/01/19 07/18/20 06/19/20 History aerosol inhaler cetirizine 10 mg tablet 10 mg PO DAILY 12/01/19 07/18/20 07/17/20 History eletriptan 20 mg tablet 40 mg PO DAILY PRN 05/11/20 07/18/20 Unknown History ibuprofen 800 mg PO TID PRN #60 tab 06/28/20 07/18/20 Unknown Rx Gas Relief (simethicone) 125 mg PO Q4H PRN 07/18/20 07/18/20 07/17/20 History buspirone 15 mg PO BID 07/18/20 07/18/20 07/17/20 History hydrocodone-acetaminophen [[place]] 1 tab PO Q4H PRN 07/18/20 07/18/20 07/16/20 History polyethylene glycol 3350 [Miralax] 17 g PO PRN 07/18/20 07/18/20 Unknown History Allergies Allergy/AdvReac Type Severity Reaction Status Date / Time codeine Allergy UNKNOWN Verified 07/18/20 11:10 Penicillins Allergy UNKNOWN Verified 07/18/20 11:10 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 PFSH: Medical History (Updated 07/18/20 @ 16:27 by Claudy Mcneil MD) Aftercare following surgery of the genitourinary system Arthritis Current every day smoker Urinary incontinence Surgical History H/O breast biopsy Family History Mother Breast cancer, Onset Age: 82 Ovarian cancer Uterine cancer Hyperlipidemia Sister Breast cancer Ovarian cancer Uterine cancer Clotting disorder Stroke Thyroid condition Father Anesthesia complication Brother Clotting disorder CAD (coronary artery disease) Son Diabetes Denies family history of Bleeding disorder Hypertension Social History Smoking and tobacco status: current every day smoker cigarettes Packs smoked per day: 1 Alcohol intake: current Alcohol intake frequency: holidays/special occasions only Alcohol type: hard liquor Other Female Reproductive History: Hx Age of Menarche: 13 Duration of menses: 3-5 days (5 days) Cycle Length: regular, monthly, LMP at age 50 y/o Menstrual flow: normal/abnormal: normal History History History 3 Term 1 Miscarriages/Ectopic 2 0 Living Children 1 Vitals/I&O/Wt Last Vital Signs Temp 97.2 F L 07/18/20 13:57 Pulse 100 07/18/20 14:44 Resp 18 07/18/20 14:44 BP 89/65 07/18/20 14:44 Pulse Ox 94 07/18/20 14:44 Weight last 48 hrs Weight 63.503 kg Physical Exam Const: COMMON NORMALS: no acute distress, patient oriented x3, alert and well nourished GENERAL APPEARANCE: well kempt HENMT: COMMON NORMALS: normocephalic and atraumatic HEAD & SCALP: normocephalic and atraumatic Neck/C-Spine: COMMON NORMALS: full ROM and Thyroid normal THYROID: Thyroid normal Lymph: LYMPHATIC: no lymphadenopathy noted Chest: CHEST: Yes Symmetrical chest wall rise Resp: COMMON NORMALS: normal respiratory effort Cardio: COMMON NORMALS: regular rate and regular rhythm RATE: regular rate RHYTHM: regular rhythm GI: COMMON NORMALS: Soft to palpation INSPECTION: Yes normal to inspection PALPATION: Yes Soft to palpation, No Tenderness to palpation present (GI), No Guarding due to palpation present (GI) and No Rebound tenderness present PERCUSSION: normal to percussion : COMMON NORMALS: No no CVA tenderness and Yes normal bimanual exam BLADDER/KIDNEY EXAM: No no CVA tenderness EXTERNAL FEMALE EXAM: Yes normal appearance of the urethra SPECULUM EXAM - VAGINA: Yes laceration, No lesion, Yes vaginal bleeding Amount: medium/moderate (from vaginal cuff), No tenderness and No Vaginal discharge present SPECULUM EXAM - CERVIX: Yes Other cervical findings present (Cervical absent) BIMANUAL EXAM - VAGINA & UTERUS: Yes normal bimanual exam, Yes normal palpation and Yes uterus absent BIMANUAL EXAM - ADNEXA, OTHER: Yes normal adnexae, No tender and No Adnexal mass present RECTO-VAGINAL: normal rectovaginal exam OB/EXTERNAL & SPECULUM: No vaginal bleeding Back/Pelvis: COMMON NORMALS: negative for no CVA tenderness LUMBAR SPINE/LOWER BACK: Yes normal to inspection and No pain with ROM PELVIS: Yes no pain with anterior-posterior compression, Yes no pain with lateral compression and No tenderness over symphysis pubis Extremity: GENERAL: Yes normal exam except as noted, No calf tenderness and No cyanosis Neuro: COMMON NORMALS: patient oriented x3 SENSORIUM/ORIENTATION: Yes alert SPEECH: speech normal Psych: COMMON NORMALS: mental status grossly normal, Normal thought process present, cooperative, normal affect and speech normal APPEARANCE: Yes grossly normal and Yes well kempt ATTITUDE: Yes calm ACTIVITY/MOTOR BEHAVIOR: Yes appropriate eye contact SPEECH: Yes normal speech MOOD & AFFECT: Yes euthymic mood THOUGHT PROCESS: Normal thought process present ATTENTION/CONCENTRATION: Yes attention grossly intact Skin: COMMON NORMALS: no rashes or lesions noted GENERAL SKIN EXAM: no rashes or lesions noted Data : 07/18/20 12:47 07/18/20 10:26 A&P Assessment and plan (1) Vaginal cuff dehiscence: Status: Acute Attestations Medical Necessity Statement*: My professional opinion for admitting diagnosis Coding Level of Care Code 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
[2020-07-18] MEDS: vancomycin 1,000 MG in sodium chloride 0.9% 250 ML 250 MG IV (16:41)
--- NOTE | 2020-07-18 17:01 | PM.OP ---
Operative Report Date of procedure: July 18, 2020 Pre-op Diagnosis: Vaginal cuff dehiscence Post-op diagnosis: same Procedure Done: Reapproximation and closure of vaginal cuff Estimated blood loss (mL): 5 IV fluids (mL): 500 Complications: None Condition: stable Disposition: PACU Brief History: 60 /o femlae status post vaginal hysterectomy with bilateral uterosacral ligament suspension and mid urethral sling performed on 06/27/2020. Came to the ER with moderate vaginal bleeding. Procedure: After informed consent and risks, benefits, indications and alternatives reviewed with the patient was taken to the operating room. The patient was placed in dorsal lithotomy position prepped, and draped in the usual sterile fashion. The pre-procedure timeout verifying the correct patient, procedure, site and side, could not requirements was performed and acknowledge by the OR team. An open side speculum was placed into the vagina in usual manner to visualize the vaginal cuff. The right side of vaginal cuff was noted to be partially open approximately 2 cm with suture ripped from anterior vaginal cuff edge. The vaginal cuff angles were closed with [id number] #0 Vicryl suture and remainder of the vaginal cuff was closed with #0 Vicryl in a running locked fashion. The instruments were removed from the vagina at hemostasis assured. The patient was taken out of dorsal lithotomy position and awakened from the general anesthesia. The patient tolerated the procedure well and was taken to the PACU recovery room in a stable condition. Sponge, lap, needle and instruments counts were correct x3.
--- NOTE | 2020-07-18 17:10 | SUR.PHASEI ---
6256 PATIENT TO PACU FROM OR. NO DISTRESS. PATIENT DENIES PAIN. SPO2 100% ON SIMPLE MASK AT 8L.
--- NOTE | 2020-07-18 17:20 | PM.PACU ---
PACU note Post-Anesthesia Exam: awake and vital signs stable Disposition: admitted
--- NOTE | 2020-07-18 17:37 | SUR.PHASEI ---
1727 PATIENT TO MED SURG. DENIES PAIN. AMBULATORY FROM [place] TO BED WHEN ARRIVING TO MED SURG.
[2020-07-18] MEDS: docusate sodium 100 mg Capsule PO (18:01)
[2020-07-18] MEDS: dextrose 5%-lactated ringers 1,000 ML 125 ML IV (18:03)
[2020-07-18] MEDS: ketorolac 30 mg/mL INJ IVP ×2 (18:09→23:31)
[2020-07-18] MEDS: gabapentin 400 mg Capsule 800 MG PO (21:54)
[2020-07-19] VITALS (16 sets, daily range): BP systolic 108–135; BP diastolic 69–85; PULSE 86–103; RESP 14–18; TEMP 36.4–37.1; O2SAT 92–100
[2020-07-19] MEDS: dextrose 5%-lactated ringers 1,000 ML 125 ML IV (02:49)
[2020-07-19 05:24] LABS: Basophils % 0.2 %; Hematocrit 24.4 % (37.0-47.0); Hemoglobin 7.6 g/dL (11.5-15.3); Lymphocytes # 1.4 10^3/uL (0.8-4.8); Lymphocytes % 11.7 %; Mean Corpuscular HGB Conc 31.1 g/dL (30.0-36.0); Mean Corpuscular Hemoglobin 29.9 pg (28.0-34.0); Mean Corpuscular Volume 96.1 fL (81-99); Mean Platelet Volume 10.6 fL (7.4-10.4); Monocytes # 0.5 10^3/uL (0.2-0.9); Monocytes % 3.9 %; Neutrophils # 9.66 10^3/uL (1.8-7.7); Neutrophils % 83.8 %; Nucleated Red Blood Cells % 0 %; Platelet Count 335 10^3/cmm (130-400); Red Blood Count 2.54 10^6/uL (4.1-5.3); Red Cell Distribution Width 12.3 % (12.1-15.1); White Blood Count 11.5 10^3/uL (4.0-10.0)
[2020-07-19 05:45] LABS: Anion Gap 10.2 (5-19); Blood Urea Nitrogen 11 mg/dL (8-23); Calcium 8.4 mg/dL (8.5-10.5); Carbon Dioxide 26 mmol/L (22-29); Chloride 109 mmol/L (98-107); Glucose 167 mg/dL (65-115); Osmolality Calculated 292 mOsm/kg (285-295); Potassium 4.2 mmol/L (3.5-5.1); Sodium 141 mmol/L (136-145)
[2020-07-19] MEDS: ketorolac 30 mg/mL INJ IVP ×2 (05:58→11:51)
--- NOTE | 2020-07-19 08:13 | PM.OBGYDC ---
Discharge Providers DASHBOARD DEVELOPER Date of Admission: 07/18/20 11:11 Date of Discharge: 07/31/20 Attending Provider at Admission: Claudy Mcneil MD Attending Provider at Discharge: Claudy Mcneil MD Primary Care Provider: Jerzy Schafer MD Diagnoses at Discharge Discharge Diagnosis (1) Vaginal cuff dehiscence: Status: Acute Reason for Visit Reason for Visit: HEAVY BLEEDING Hospital Course Hospital Course: 60-year-old female status post vaginal hysterectomy and midurethral sling 2 weeks ago. Came to the ER referring moderate vaginal bleeding. Output examination of partial vaginal cuff dehiscence was noted. She was taken urgently to the ER to control the vaginal bleeding. Intraoperative the right corner of vaginal cuff was noted to be decreased by 2 cm. Vaginal cuff was repaired uneventfully. Overnight observation uneventful. She is afebrile hemodynamically stable. Kerry diet well ambulating without difficulty Physical Exam Narrative: EXAM NARRATIVE: GA: Alert and oriented ?3. HEENT: WNL. Heart: Regular rate and rhythm. Lungs: Clear to auscultation bilaterally. Abdomen: Bowel sounds present, nontender. 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 Extremities: No edema, no cyanosis, no calves pain. Discharge Data Data Completed and Pending: Completed Studies During Hospitalization Category Date Time Status US pelvic complet e* [id number] Urgent Ultrasound 07/18/20 11:06 Completed Pending at discharge Category Date Time Status COVID [Coronaviru s Lab Test PTC] Ro utine Lab 07/18/20 15:00 Received Labs from last 24 hours 07/19/20 07/19/20 07/18/20 04:26 04:26 15:00 WBC 11.5 H RBC 2.54 L Hgb 7.6 L Hct 24.4 L MCV 96.1 MCH 29.9 MCHC 31.1 RDW 12.3 Plt Count 335 MPV 10.6 H Neut % (Auto) 83.8 Lymph % (Auto) 11.7 [place] % (Auto) 3.9 Eos % (Auto) 0.0 Baso % (Auto) 0.2 Neut # (Auto) 9.66 H Lymph # (Auto) 1.4 [place] # (Auto) 0.5 Eos # (Auto) 0.0 Baso # (Auto) 0.0 Nucleated RBC % (a uto) 0 Nucleated RBCs # 0.0 PT INR APTT Sodium 141 Potassium 4.2 Chloride 109 H Carbon Dioxide 26 Anion Gap 10.2 BUN 11 Creatinine 0.6 GFR Calculation 102.0 Glucose 167 H Calculated Osmolal ity 292 Calcium 8.4 L Total Bilirubin AST ALT Alkaline Phosphata se Total Protein Albumin Globulin Nasal/Oral COVID-1 9 PCR Pending Blood Type Rho(D) Type Antibody Screen 07/18/20 07/18/20 07/18/20 12:47 10:26 10:26 WBC RBC Hgb 9.6 L Hct MCV MCH MCHC RDW Plt Count MPV Neut % (Auto) Lymph % (Auto) [place] % (Auto) Eos % (Auto) Baso % (Auto) Neut # (Auto) Lymph # (Auto) [place] # (Auto) Eos # (Auto) Baso # (Auto) Nucleated RBC % (a uto) Nucleated RBCs # PT 12.80 INR 0.94 APTT 28.3 Sodium 141 Potassium 3.4 L Chloride 107 Carbon Dioxide 26 Anion Gap 11.4 BUN 12 Creatinine 0.6 GFR Calculation 102.0 Glucose 130 H Calculated Osmolal ity 290 Calcium 8.7 Total Bilirubin 0.2 AST 14 ALT 11 Alkaline Phosphata se 142 H Total Protein 6.4 L Albumin 3.6 Globulin 2.8 Nasal/Oral COVID-1 9 PCR Blood Type Rho(D) Type Antibody Screen 07/18/20 07/18/20 10:26 10:26 WBC 7.1 RBC 3.34 L Hgb 10.0 L Hct 31.8 L MCV 95.2 MCH 29.9 MCHC 31.4 RDW 12.2 Plt Count 373 MPV 9.9 Neut % (Auto) 62.7 Lymph % (Auto) 25.6 [place] % (Auto) 8.6 Eos % (Auto) 2.1 Baso % (Auto) 0.7 Neut # (Auto) 4.42 Lymph # (Auto) 1.8 [place] # (Auto) 0.6 Eos # (Auto) 0.2 Baso # (Auto) 0.1 Nucleated RBC % (a uto) 0 Nucleated RBCs # 0.0 PT INR APTT Sodium Potassium Chloride Carbon Dioxide Anion Gap BUN Creatinine GFR Calculation Glucose Calculated Osmolal ity Calcium Total Bilirubin AST ALT Alkaline Phosphata se Total Protein Albumin Globulin Nasal/Oral COVID-1 9 PCR Blood Type A Positive Rho(D) Type Positive Antibody Screen Negative Vitals: Last Vital Signs Temp 98.8 F 07/19/20 07:16 Pulse 86 07/19/20 07:16 Resp 16 07/19/20 07:16 BP 121/74 07/19/20 07:16 Pulse Ox 96 07/19/20 07:16 Discharge Plan Discharge Patient Disposition: Home Condition: Stable Prescriptions: [place] (ferrous sulfate) 325 mg (65 mg iron) tablet 325 mg PO BID Qty: 60 RF: 0 Continued duloxetine [Cymbalta] 30 mg capsule,delayed release(DR/EC) 30 mg PO DAILY RF: 0 fluticasone propionate 50 mcg/actuation spray,suspension 2 spray INTRANASAL DAILY RF: 0 gabapentin 800 mg tablet 800 mg PO TID RF: 0 meloxicam 15 mg tablet 15 mg PO DAILY RF: 0 Prilosec OTC 20 mg tablet,delayed release (DR/EC) 20 mg PO BID RF: 0 promethazine 25 mg tablet 25 mg PO QID PRN (Reason: Nausea) RF: 0 montelukast [Singulair] 10 mg tablet 10 mg PO DAILY RF: 0 cetirizine 10 mg tablet 10 mg PO DAILY RF: 0 eletriptan [Relpax] 20 mg tablet 40 mg PO DAILY PRN (Reason: Migraine Headache) RF: 0 albuterol sulfate [Proventil HFA] 90 mcg/actuation HFA aerosol inhaler 2 puff INHALATION QID PRN (Reason: asthma) RF: 0 ibuprofen 800 mg tablet 800 mg PO TID PRN (Reason: pain) Qty: 60 RF: 0 Miralax 17 gram Powder In Packet 17 g PO PRN RF: 0 buspirone 15 mg Tablet 15 mg PO BID RF: 0 Gas Relief (simethicone) 125 mg capsule 125 mg PO Q4H PRN (Reason: abdominal distention) RF: 0 Discharge Orders: Discharge Order (Routine); Ordered 07/19/20 Ordered By: Claudy Mcneil Referrals: Claudy Mcneil MD [Physician] - 07/26/20 3:15 pm (You have an appointment with Dr. Mcneil on July 26 at 3:15pm) Jerzy Schafer MD [Primary Care Provider] - 08/06/20 2:30 pm (You have an appointment on August 06 at 2:[address] Schafer.) Patient Instructions: Iron Supplements (By mouth), Vaginal Hysterectomy (DC), Iron Rich Diet (DC) Discharge Date/Time: 07/19/20 16:48 Discharge Attestations DASHBOARD DEVELOPER Time Spent in Discharge Care*: greater than 30 min Coding Level of Care Code Acute Kier Hand for Chg Fwd Diagnoses Vaginal cuff dehiscence T81.31XA
[2020-07-19] MEDS: montelukast sodium 10 mg Tablet PO (08:21)
[2020-07-19] MEDS: duloxetine 30 mg Capsule PO (08:21)
[2020-07-19] MEDS: cetirizine 10 mg Tablet PO (08:21)
[2020-07-19] MEDS: gabapentin 400 mg Capsule 800 MG PO ×2 (08:22→15:50)
[2020-07-19] MEDS: pantoprazole DR 40 mg Tablet PO (08:22)
[2020-07-19] MEDS: fluticasone nasal spray 16gm Btl 2 SPRAY INTRANASAL (08:22)
[2020-07-19] MEDS: docusate sodium 100 mg Capsule PO (08:22)
--- NOTE | 2020-07-19 08:23 | ANE.PACU2 ---
Inpatient post-anesthesia follow up: Airway intact: Yes Vital signs: Temperature 98.8 F Pulse Rate [Monito r] 100 Pulse Rate 86 Respiratory Rate 16 Blood Pressure [Ri ght Arm] 148/100 Blood Pressure 121/74 Pulse Oximetry 96 Oxygen Delivery Me thod Room Air Oxygen Flow Rate 8 Fraction of Inspir ed Oxygen Hydration adequate: Yes Nausea and vomiting: No Pain level: 1 Mental status: Baseline
--- NOTE | 2020-07-19 11:44 | PC.CHAP ---
Pastoral Care Encounter/Spiritual Assessment Type of Contact [] Declined tissue specialist visit [] Patient/Family/Request visit [] Outpatient visit [] Follow-up visit [] Physician referral [] Code/Alert [x] Routine visit [] Staff referral [] Actively dying [] Patient sleeping [] Family support [] [] Out of room [] Palliative care [] [x] Receiving care in room [] Pre-surgical visit [] Trauma [] Long length of stay [] ICU visit [] Other: Relational/Emotional Strength [] Patient feels connected with others/family/visitors/staff [x] Distress [] Loneliness/isolation [] Abandonment Spirituality of Patient [x] Person of Yarely [] Attends Scientologist of their Yarely [x] Believes in Prayer [] Reads Bible or Scientologist materials [] There are Spiritual issues to be addressed Optics Manufacturing Technician Interventions [x] Prayer [x] Active listening [x] Non-anxious presence [x] Spiritual/emotional support [] Crisis/trauma care [x] Spiritual counseling [] Bereavement support [] Provided bereavement packet [] Provided Bible/devotional materials [] Provided toy/stuffed animal, coloring book to patient or family member [] Provided Communion [] Anointing/[place] [] Salvation [x] Completed spiritual assessment [] Other: Impact on Illness or Injury [] Angry [] Fearful [] Anxious [] Often cries [] Exhaustion [] Unable to work [] Unable to attend adventist [] Unable to walk/stand [] Unable to read [] Unable to drive [] Unable to eat/drink [] Unable to sleep [] Unable to be with family [] Patient intubated [] Other: Summary Negative feelings about her health, has a good attitude, was able to communicate with her Time spent with patient 10 mins
[2020-07-19] MEDS: sodium chloride 0.9% (100 ml) 100 ML ×2 (11:51→15:52)
[2020-07-19 16:04] LABS: Basophils % 0.2 %; Eosinophils # 0.1 10^3/uL (0.0-0.8); Eosinophils % 0.6 %; Hematocrit 31.5 % (37.0-47.0); Lymphocytes # 3.1 10^3/uL (0.8-4.8); Lymphocytes % 22.5 %; Mean Corpuscular HGB Conc 32.1 g/dL (30.0-36.0); Mean Corpuscular Hemoglobin 29.9 pg (28.0-34.0); Mean Corpuscular Volume 93.2 fL (81-99); Mean Platelet Volume 10.2 fL (7.4-10.4); Monocytes # 1.2 10^3/uL (0.2-0.9); Neutrophils # 9.29 10^3/uL (1.8-7.7); Neutrophils % 67.3 %; Nucleated Red Blood Cells % 0 %; Platelet Count 291 10^3/cmm (130-400); Red Blood Count 3.38 10^6/uL (4.1-5.3); Red Cell Distribution Width 13.1 % (12.1-15.1); White Blood Count 13.8 10^3/uL (4.0-10.0)
[2020-07-19 16:07] LABS: Hemoglobin 10.1 g/dL (11.5-15.3)
[2020-07-20 09:03] LABS: Coronavirus Lab Test PTC Negative
--- NOTE | 2020-07-20 14:03 | PC.RESP ---
SMOKING CESSATION INFORMATION SENT TO PATIENT.
== END 2020-07-19 16:48 | disposition home or self-care (01) ==
LOC: ER 12:07 → MEDSURG 13:36 → ER 14:36 → MEDSURG 21:42
PROVIDERS: Admitting Provider Obstetrics & Gynecology; Emergency Provider Family Medicine; PCP Family Medicine; Visit Provider Obstetrics & Gynecology
PROC: 0UQG0ZZ Repair Vagina, Open Approach (ICD-10-PCS; CPT 57200; principal; 2020-07-18 15:00)
DX: T81.31XA Disruption of external operation (surgical) wound, not elsewhere classified, initial encounter (principal); N93.8 Other specified abnormal uterine and vaginal bleeding; F17.210 Nicotine dependence, cigarettes, uncomplicated; K21.9 Gastro-esophageal reflux disease without esophagitis; M19.90 Unspecified osteoarthritis, unspecified site; Z80.3 Family history of malignant neoplasm of breast
CPT/HCPCS: 57200; 12345; 36415; 36430; 76856; 80048; 80053; 85018; 85025; 85610; 85730; 86850; 86900; 86920; 87635; 96361; 96365; 96375; 99283; 99285; G0378; J1100; J1885; J2370; J2405; J2704; J3010; J3370; J7050; P9016; P9040

== ENCOUNTER 2021-03-19 09:39 | Outpatient (CLI) | payer MEDICAID, SELFPAY ==
[2021-03-19 10:44] LABS: Basophils # 0.1 10^3/uL (0.0-0.1); Eosinophils # 0.1 10^3/uL (0.0-0.8); Eosinophils % 0.8 %; Hematocrit 42.5 % (37.0-47.0); Lymphocytes # 2.6 10^3/uL (0.8-4.8); Lymphocytes % 29.4 %; Mean Corpuscular HGB Conc 32.9 g/dL (30.0-36.0); Mean Corpuscular Hemoglobin 29.5 pg (28.0-34.0); Mean Corpuscular Volume 89.5 fL (81-99); Mean Platelet Volume 9.8 fL (7.4-10.4); Monocytes # 0.6 10^3/uL (0.2-0.9); Neutrophils # 5.52 10^3/uL (1.8-7.7); Neutrophils % 61.6 %; Nucleated Red Blood Cells % 0 %; Platelet Count 368 10^3/cmm (130-400); Red Blood Count 4.75 10^6/uL (4.1-5.3); Red Cell Distribution Width 11.9 % (12.1-15.1)
[2021-03-19 11:26] LABS: Alanine Aminotransferase 14 U/L (0-33); Albumin Level 4.2 g/dL (3.5-5.2); Alkaline Phosphatase 189 IU/L (35-105); Anion Gap 12.6 (5-19); Aspartate Amino Transferase 17 U/L (0-32); Blood Urea Nitrogen 9 mg/dL (8-23); Calcium 8.9 mg/dL (8.5-10.5); Carbon Dioxide 26 mmol/L (22-29); Chloride 100 mmol/L (98-107); Globulin 2.8 g/dL (1.3-4.6); Glomerular Filtration Rate 125.9 mL/min (90-130); Glucose 102 mg/dL (65-115); Osmolality Calculated 279 mOsm/kg (285-295); Potassium 3.6 mmol/L (3.5-5.1); Sodium 135 mmol/L (136-145); Thyroid Stimulating Hormone 1.08 uIU/mL (0.27-4.20); Total Bilirubin 0.4 mg/dL (0.15-1.2); Vitamin B12 362 pg/mL (232-1245)
--- NOTE | 2021-03-23 08:19 | ONC FU_ITS ---
Dr. Kelly Patient Follow-Up Note Patient: Mounika Kneney Unit #: [id number]: 1960 Dicatated By: Mohsen Kelly M.D.Date of Visit:March 19, 2021 Onc Med Follow-up/Prog Note Chief Complaint: Breast cancer. History of Present Illness: This is a 60 year-old woman with grade 1 infiltrating ductal carcinoma of the right breast, stage IA (T1c, pN1a, M0), ER/OH positive and HER-2/radha negative. She had presented initially with a lump in the upper inner quadrant right breast. She underwent excisional biopsy on 03/07/2010. Pathology showed grade 1 infiltrating ductal carcinoma measuring 1.7 x 1.5 cm. There was a component of ductal carcinoma in situ estimated at 30% of the overall tumor volume. The tumor was ER and OH positive, both at 100%. It was negative for overexpression of HER-2/radha by IHC and by FISH. She then underwent reexcision lumpectomy and sentinel last lymph node biopsy. The reexcision specimen was negative. There were microscopic deposits of metastatic adenocarcinoma in a single sentinel axillary lymph node. A subsequent right axillary lymph node dissection showed no involvement in an additional 9 lymph nodes. She was given adjuvant chemotherapy with 4 cycles of Taxotere/cyclophosphamide, which she completed in July 2010. She completed radiation to the right breast in October 2010 to a total dose of 5940 cGy. She then started adjuvant hormonal therapy, initially with tamoxifen, as she was premenopausal. She stopped it within a very short time due to multiple side effects. She had become postmenopausal following the chemotherapy, and I had suggested that she continue hormonal treatment with an aromatase inhibitor. Initially she was reluctant to do that, but she ultimately did agree to start anastrozole in July 2012. She did have evidence of osteoporosis on her baseline bone density study and she also started treatment with Prolia along with calcium/vitamin D supplements. The anastrozole was stopped in August 2013 when she developed vaginal spotting. As of February 2014 she restarted hormonal therapy with Aromasin. It was stopped within 6 months due to side effects. She was then followed on observation/expectant management. Her other medical illnesses include COPD, degenerative arthritis/degenerative disease of the spine, fibromyalgia, and chronic anxiety/depression. She has a history of migraine headaches. A Dexa scan on 02/01/2019 showed severe osteopenia in the lumbar spine, T score -2.2. In March 2019 she began treatment with Prolia. She smokes 1 pack of cigarettes daily. She is seen for a follow-up visit. She complains that she has been feeling really tired. She is still wearing her normal housework and she is walking. ECOG score is 1. She has good appetite. She has not had fever. She still has some hot flashes and sweating. She recently had antibiotic therapy for a sinus infection and bronchitis. Her cough is better now. Her breathing has been okay. She is still smoking 1 pack of cigarettes daily. She does not complain of chest pain. Her acid reflux is adequately managed with Prilosec, but she has to take it twice a day. She has no other GI complaints. Her bladder is overactive. She has generalized joint pain and she has chronic back pain. She is managing it with gabapentin and meloxicam. She does not complain of headache or dizziness. She says she has a lot of numbness/tingling in her hands and feet. She has anxiety and depression. Medications: busPIRone HCl 1 Tablet (of 5 mg) Oral PRN, Cetirizine HCl 1 Tablet (of 10 mg) Oral daily, Cymbalta 1 Capsule (of 30 mg) Capsule Delayed Release Particles Oral daily, Flonase Suspension Nasal daily, Gabapentin 1 Tablet (of 800 mg) Oral q 2 hours PRN, Meloxicam 1 Tablet (of 15 mg) Oral daily, PriLOSEC OTC 1 Tablet (of 20 mg) Tablet, enteric coated Oral daily, Promethazine HCl 25 mg - Take 1 Tablet Oral four times a day PRN, Singulair 1 Tablet (of 10 mg) Oral daily Allergies: codeine and Penicillins. Vital Signs: Performed on March 19, 2021 09:50 Height - 66.00 in Weight - 141.4 lbs (HIGH) BSA - 1.73 sq.m BMI - 22.82 Temperature - 97.5 F (LOW) Pulse - 108 /min (HIGH) Respiration - 18 /min BP - 155/94 mm(hg) (HIGH) O2 Sat - 97 % Pain - 2 Fatigue - 0 Physical Examination: Constitutional - She looks pretty good generally, Eyes - Sclerae nonicteric. Conjunctivae clear, ENMT - No lesions noted in the oral cavity, Hematologic/Lymphatic - No cervical, clavicular, or axillary adenopathy, Respiratory - Lungs sound clear with diminished air movement bilaterally, Cardiovascular - Heart rhythm is regular. There is no murmur, gallop, or rub noted, Abdomen - Soft. Liver and spleen are not enlarged. There is no abdominal mass or ascites noted and there is no inguinal adenopathy, Extremities - No edema. Dorsalis pedis pulses are palpable bilaterally, Neurologic - No focal neurologic deficits noted. Lab/Imaging: Test performed on March 19, 2021 10:26 Sodium 135 mmol/L TSH 1.08 uIU/mL Vitamin B12 362 pg/mL Potassium 3.6 mmol/L Chloride 100 mmol/L CO2 26 mmol/L Anion Gap 12.6 BUN 9 mg/dL Creatinine 0.5 mg/dL Cr Clearance (Est) 121.1500 mL/min eGFR 125.9 mL/min Glucose 102 mg/dL Osmolality - Calculated 279 mOsm/kg Calcium 8.9 mg/dL Protein, Total 7.0 g/dL Albumin 4.2 g/dL Globulin 2.8 g/dL Bilirubin, Total 0.4 mg/dL ALT (SGPT) 14 U/L AST (SGOT) 17 U/L Alkaline Phosphatase 189 IU/L WBC 9.0 10 3/uL RBC 4.75 10 6/uL HGB 14.0 g/dL HCT 42.5 % MCV 89.5 fL MCH 29.5 pg MCHC 32.9 g/dL RDW 11.9 % Platelet Count 368 10 3/cmm MPV 9.8 fL Neutrophils 5.52 10 3/uL Lymphocytes 2.6 10 3/uL Monocytes 0.6 10 3/uL Eosinophils 0.1 10 3/uL Basophils 0.1 10 3/uL Neutrophil % 61.6 % Lymphocyte % 29.4 % Monocyte % 7.0 % Eosinophil % 0.8 % Basophils % 1.0 % NRBC % 0 % Problem List: 1. Grade 1 infiltrating ductal carcinoma of the right breast, stage IA (T1c, pN1a, M0), ER/OH positive and HER-2/radha negative. 2. COPD. 3. Degenerative arthritis/degenerative disease of the spine. 4. Fibromyalgia. 5. Osteoporosis. 6. Chronic migraine. 7. Chronic anxiety/depression. 8. History of opiate addiction. Problems Addressed with this Encounter and Plan: 1. Patient with grade 1 infiltrating ductal carcinoma of the right breast, stage IA (T1c, pN1a, M0), ER/OH positive and HER-2/radha negative. Her treatment included lumpectomy/axillary lymph node sampling followed by adjuvant chemotherapy with 4 cycles of docetaxel/cyclophosphamide, completed in July 2010. She then underwent radiation to the right breast, completed in October 2010. She had poor tolerance for adjuvant tamoxifen. However, she had become postmenopausal following chemotherapy, and she subsequently started adjuvant hormonal therapy with anastrozole in July 2012. It was stopped in August 2013 when she developed vaginal spotting. As of February 2014 she restarted hormonal therapy with Aromasin, but she stopped within 6 months because of side effects. She was then been followed on observation/expectant management. During follow-up she is had ongoing issues with chronic pain and she has somewhat limited activity tolerance, but thus far there has been no evidence of recurrence of the breast cancer. She is overdue for her surveillance diagnostic mammogram, and those will be scheduled. She will otherwise just continue on observation/expectant management. 2. Degenerative arthritis/degenerative disease of the spine and fibromyalgia. She has chronic pain. She will continue her current treatment with gabapentin 800 mg 3 times daily and meloxicam 15 mg daily. 3. She has a history of smoking 1 pack of cigarettes daily. She has been counseled on numerous occasions. She has at risk for lung cancer, and she will be scheduled for a screening CT. Signed By: Mohsen Kelly M.D. <<Signature on File>>
== END 2021-03-19 09:40 | disposition home or self-care (01) ==
LOC: ONCMED 09:41
PROVIDERS: PCP Family Medicine; Visit Provider Internal Medicine Medical Oncology
DX: C50.811 Malignant neoplasm of overlapping sites of right female breast (principal); Z17.0 Estrogen receptor positive status [ER+]; J44.9 Chronic obstructive pulmonary disease, unspecified; M47.9 Spondylosis, unspecified; M79.7 Fibromyalgia; M81.0 Age-related osteoporosis without current pathological fracture; G43.919 Migraine, unspecified, intractable, without status migrainosus; F41.9 Anxiety disorder, unspecified; F32.9 Major depressive disorder, single episode, unspecified; F11.20 Opioid dependence, uncomplicated; Z79.811 Long term (current) use of aromatase inhibitors; Z79.899 Other long term (current) drug therapy
CPT/HCPCS: 36415; 80053; 82607; 84443; 85025; 99214

== ENCOUNTER → 2023-01-01 08:40 | Outpatient (BNVA) | payer MEDICAID, SELFPAY | PROVIDERS: PCP Family Medicine; Visit Provider Podiatrist Foot & Ankle Surgery | DX: L60.0 Ingrowing nail (principal); L60.3 Nail dystrophy; Z98.890 Other specified postprocedural states | CPT/HCPCS: 36415; 73630; 80053; 85025; 85651; 86140; 99214 ==

== ENCOUNTER 2023-05-19 18:51 | Inpatient (IN) | payer MEDICAID, SELFPAY ==
[2023-05-19] VITALS (7 sets, daily range): BP systolic 110–135; BP diastolic 65–93; PULSE 85–99; RESP 15–18; TEMP 36.4–36.9; O2SAT 94–97
--- NOTE | 2023-05-19 18:52 | W.ED.SKABFB ---
HPI - Skin/Abscess/Foreign Bdy General: Chief complaint: Wound/Laceration Stated complaint: infection LT leg Time Seen by Provider: 05/19/23 18:52 History of Present Illness: Ms. Kenney is a 63-year-old lady presented to the emergency department for leg and arm concern. She notes first noticing a scratch while outside probably on [place] on 05/14. She did have superficial bleeding that did not require intervention. She apparently had some sort of a salve that she put on it once however felt like it may have worsened it. Since that time has had increased redness, swelling, pain and also notes that the wound has opened. She also thinks that she got 1 either yesterday or the day before on her left arm. She denies painless nodules that evolved to this. She does have some tracking of pain and lesions up the leg. Has had nausea and generalized malaise as well as increased headaches however no fevers. Intensity symptoms is moderate. Was seen at urgent care and referred to the ER for further evaluation. She is not currently on antibiotics. No other specific changes in health, exacerbating, or alleviating factors identified. Onset (ago): day(s) Location: LUE and RLE Severity: moderate Quality: aching and constant Relieving factors: none Exacerbating factors: palpation and movement Associated symptoms: Reports nausea, vomiting and other Review of Systems General: Reports: 10 or more systems reviewed and unremarkable except in HPI and below GI: Reports: nausea and vomiting [facility] ED PFS: Medical History (Updated 05/23/23 @ 00:01 by YOANDY Etienne) Aftercare following surgery of the genitourinary system Altered mental status Arthritis Cellulitis Chronic low back pain Current every day smoker Leg wound, right Urinary incontinence Surgical History H/O breast biopsy Family History Mother Breast cancer, Onset Age: 82 Ovarian cancer Uterine cancer Hyperlipidemia Sister Breast cancer Ovarian cancer Uterine cancer Clotting disorder Stroke Thyroid condition Father Anesthesia complication Brother Clotting disorder CAD (coronary artery disease) Son Diabetes Denies family history of Bleeding disorder Hypertension Social History Smoking and tobacco status: current every day smoker cigarettes Packs smoked per day: 1 Alcohol intake: current Alcohol intake frequency: holidays/special occasions only Alcohol type: hard liquor Substance/Drug Use: former Date of last use: THC Physical Exam Const: COMMON NORMALS: alert GENERAL APPEARANCE: cooperative, well developed and ill appearing (Mildly) HENMT: COMMON NORMALS: normocephalic and atraumatic HEAD & SCALP: normocephalic and atraumatic Eye: COMMON NORMALS: conjunctivae normal CONJUNCTIVA: Yes conjunctivae normal SCLERA: sclerae normal Neck/C-Spine: COMMON NORMALS: supple GENERAL: Yes trachea midline Resp: COMMON NORMALS: normal respiratory effort EFFORT & INSPECTION: Yes able to speak in complete sentences Cardio: COMMON NORMALS: regular rate and regular rhythm RATE: regular rate RHYTHM: regular rhythm GI: COMMON NORMALS: Soft to palpation PALPATION: Yes Soft to palpation and No Tenderness to palpation present (GI) Extremity: NARRATIVE EXTREMITY EXAM: Right lower extremity circumferential erythema centered around a irregular shaped ulcerating approximately 3 x 2 cm lesion. Warmth and tenderness tracks mostly distal. Proximal spread to the mid [place] with some skin lesions that are tender without significant erythema along the lymphatic tract. Left upper extremity upper arm central 5 mm x 5 mm ulcerative appearing lesion without necrosis. Surrounding erythema and tenderness as well as warmth. GENERAL: Yes normal exam except as noted Neuro: COMMON NORMALS: moves all extremities SENSORIUM/ORIENTATION: Yes alert and No Orientation impaired Psych: COMMON NORMALS: mental status grossly normal and Normal thought process present THOUGHT PROCESS: Normal thought process present Course Vital Signs: Vital signs: Vital Signs Temperature 97.6 F 05/22/23 08:00 Pulse Rate 89 05/22/23 11:34 Respiratory Rate 18 05/22/23 11:34 Blood Pressure 136/81 05/22/23 08:00 Pulse Oximetry 98 05/22/23 11:34 Oxygen Delivery Me thod Room Air 05/22/23 10:33 MDM - Skin/Abscess/Foreign Bdy Medicial Decision Making 63-year-old lady presenting to the emergency department for worsening lower extremity leg swelling and redness concerning for infection. Exam as above. Somewhat ill and at times somnolent though nontoxic. No focal neuro findings. No meningismus. No physical exam findings worrisome for necrotizing infection. Labs with no leukocytosis, normocytic anemia, normal platelet count. Metabolic panel without significant derangement. Inflammatory markers are elevated. Patient treated with antibiotics. On reassessment continues to have abnormal mental state intermittently without clear explanation. Additional laboratory studies were ordered and pending at time of admission. CT head is negative. The results of ED evaluation were discussed with the patient including plan for admission due to requirement for level of care not available if discharged to prevent significant worsening/deterioration. Patient agreeable with plan. Discussed with hospitalist service who was agreeable to admit patient. Medical Records I reviewed the patient's medical records. Lab Data I reviewed the patient's lab results. 05/22/23 03:49 05/22/23 03:[address] 05/19/23 20:13 IMPRESSION: 1. No acute intracranial abnormality. 2. Mild age-related changes. Duplex Scan Lower Extremity Artery 05/19/23 21:58 IMPRESSION: 1. No left leg artery stenosis or occlusion. 2. The waveform patterns do suggest a more proximal stenotic vascular lesion, possible at the aortic or proximal iliac level. A CTA may be considered if indicated. Duplex Scan Upper Extremity Artery 05/19/23 21:58 IMPRESSION: No acute findings. At this time there is no hemodynamic evidence to suggest thoracic outlet pathology. Humerus CT 05/19/23 23:17 IMPRESSION: 1. No fracture, soft tissue gas, or evidence of abscess. 2. Left upper lateral arm subcutaneous edema/cellulitis. Lower Extremity CT 05/19/23 23:17 IMPRESSION: 1. Left lower leg, ankle and foot probable cellulitis. No abscess is noted. 2. No fracture or focal bone destruction noted. If symptoms progress or persist, an MRI may be helpful if indicated. 3. Moderate left groin likely reactive lymphadenopathy. Laboratory Results WBC 9.8 10^3/uL (4.0-10.0) 05/19/23 19:05 RBC 3.86 10^6/uL (4.1-5.3) L 05/19/23 19:05 Hgb 11.2 g/dL (11.5-15.3) L 05/19/23 19:05 Hct 34.5 % (37.0-47.0) L 05/19/23 19:05 MCV 89.4 fl (81-99) 05/19/23 19:05 MCH 29.0 pg (28.0-34.0) 05/19/23 19:05 MCHC 32.5 g/dL (30.0-36.0) 05/19/23 19:05 RDW 11.6 % (12.1-15.1) L 05/19/23 19:05 Plt Count 326 10^3/cmm (130-400) 05/19/23 19:05 MPV 9.7 fL (7.4-10.4) 05/19/23 19:05 Neut % (Auto) 70.0 % 05/19/23 19:05 Lymph % (Auto) 21.2 % 05/19/23 19:05 Angelina % (Auto) 7.3 % 05/19/23 19:05 Eos % (Auto) 0.8 % 05/19/23 19:05 Baso % (Auto) 0.4 % 05/19/23 19:05 Neut # (Auto) 6.86 10^3/uL (1.8-7.7) 05/19/23 19:05 Lymph # (Auto) 2.1 10^3/uL (0.8-4.8) 05/19/23 19:05 Angelina # (Auto) 0.7 10^3/uL (0.2-0.9) 05/19/23 19:05 Eos # (Auto) 0.1 10^3/uL (0.0-0.8) 05/19/23 19:05 Baso # (Auto) 0.0 10^3/uL (0.0-0.1) 05/19/23 19:05 Nucleated RBC % (auto) 0 % 05/19/23 19:05 Nucleated RBCs # 0.0 /100WBC 05/19/23 19:05 ESR 40 mm/hr (0-15) H 05/19/23 19:05 Sodium 139 mmol/L (136-145) 05/19/23 19:05 Potassium 3.5 mmol/L (3.5-5.1) 05/19/23 19:05 Chloride 103 mmol/L (98-107) 05/19/23 19:05 Carbon Dioxide 27 mmol/L (22-29) 05/19/23 19:05 Anion Gap 12.5 (5-19) 05/19/23 19:05 BUN 8 mg/dL (8-23) 05/19/23 19:05 Creatinine 0.7 mg/dL (0.5-0.9) 05/19/23 19:05 GFR Calculation 84.5 mL/min (90-130) L 05/19/23 19:05 Glucose 93 mg/dL (65-115) 05/19/23 19:05 POC Glucose 100 mg/dL (70-110) 05/19/23 19:56 Estimat Average Glucose 103 05/19/23 19:05 Hemoglobin A1c 5.2 % (4.0-6.0) 05/19/23 19:05 Calculated Osmolality 286 mOsm/kg (285-295) 05/19/23 19:05 Lactic Acid 0.7 mmol/L (0.5-2.2) 05/19/23 19:05 Calcium 9.1 mg/dL (8.5-10.5) 05/19/23 19:05 Total Bilirubin 0.4 mg/dL (0.15-1.2) 05/19/23 19:05 AST 13 U/L (0-32) 05/19/23 19:05 ALT 11 U/L (0-33) 05/19/23 19:05 Alkaline Phosphatase 185 U/L (35-105) H 05/19/23 19:05 C-Reactive Protein 78.0 mg/L (0.0-4.9) H 05/19/23 19:05 Total Protein 7.1 g/dL (6.6-8.7) 05/19/23 19:05 Albumin 3.6 g/dL (3.5-5.2) 05/19/23 19:05 Globulin 3.5 g/dL (1.3-4.6) 05/19/23 19:05 Procalcitonin 0.04 ng/mL (0-0.5) 05/19/23 19:05 TSH 0.30 uIU/mL (0.27-4.20) 05/19/23 19:05 Salicylates < 0.3 mg/dL (3-10) L 05/19/23 19:05 Acetaminophen < 5.0 ug/mL (10-30) L 05/19/23 19:05 Ethyl Alcohol < 10 mg/dL (0-10) 05/19/23 19:05 Discharge Plan Discharge Patient Disposition: Admitted As Inpatient Admit Provider: Shalonda Wong Clinical Impression: Cellulitis, Altered mental status Condition: Stable Coding Level of Care Code ED Monomer Recovery Operator for Kirstin Saez
[2023-05-19 19:19] LABS: Basophils % 0.4 %; Eosinophils # 0.1 10^3/uL (0.0-0.8); Eosinophils % 0.8 %; Hematocrit 34.5 % (37.0-47.0); Hemoglobin 11.2 g/dL (11.5-15.3); Lymphocytes # 2.1 10^3/uL (0.8-4.8); Lymphocytes % 21.2 %; Mean Corpuscular HGB Conc 32.5 g/dL (30.0-36.0); Mean Corpuscular Volume 89.4 fl (81-99); Mean Platelet Volume 9.7 fL (7.4-10.4); Monocytes # 0.7 10^3/uL (0.2-0.9); Monocytes % 7.3 %; Neutrophils # 6.86 10^3/uL (1.8-7.7); Nucleated Red Blood Cells % 0 %; Platelet Count 326 10^3/cmm (130-400); Red Blood Count 3.86 10^6/uL (4.1-5.3); Red Cell Distribution Width 11.6 % (12.1-15.1); White Blood Count 9.8 10^3/uL (4.0-10.0)
[2023-05-19] MEDS: clindamycin 600 MG/50 ML PREMIX 100 MG IV (19:22)
[2023-05-19 19:23] LABS: Erythrocyte Sedimentation Rate 40 mm/hr (0-15)
[2023-05-19 19:40] LABS: Alanine Aminotransferase 11 U/L (0-33); Albumin Level 3.6 g/dL (3.5-5.2); Alkaline Phosphatase 185 U/L (35-105); Anion Gap 12.5 (5-19); Aspartate Amino Transferase 13 U/L (0-32); Blood Urea Nitrogen 8 mg/dL (8-23); Calcium 9.1 mg/dL (8.5-10.5); Carbon Dioxide 27 mmol/L (22-29); Chloride 103 mmol/L (98-107); Globulin 3.5 g/dL (1.3-4.6); Glomerular Filtration Rate 84.5 mL/min (90-130); Glucose 93 mg/dL (65-115); Osmolality Calculated 286 mOsm/kg (285-295); Potassium 3.5 mmol/L (3.5-5.1); Sodium 139 mmol/L (136-145); Total Bilirubin 0.4 mg/dL (0.15-1.2); Total Protein 7.1 g/dL (6.6-8.7)
[2023-05-19 19:41] LABS: Lactic Sepsis W/Reflex 0.7 mmol/L (0.5-2.2)
[2023-05-19] MEDS: vancomycin 2,000 MG/400 ML PIGGYBACK 200 MG IV (19:46)
[2023-05-19 19:58] LABS: Glucose Point of Care 100 mg/dL (70-110)
--- NOTE | 2023-05-19 20:13 | CTR_ITS ---
PROCEDURE INFORMATION: Exam: CT Head Without Contrast Exam date and time: 05/19/2023 8:35 PM Age: 63 years old Clinical indication: Altered mental status/memory loss; Confusion or disorientation; Additional info: AMS, headache TECHNIQUE: Imaging protocol: Computed tomography of the head without contrast. Radiation optimization: All CT scans at this facility use at least one of these dose optimization techniques: automated exposure control; mA and/or kV adjustment per patient size (includes targeted exams where dose is matched to clinical indication); or iterative reconstruction. REPORTING DATA: Count of CT and Cardiac NM exams in prior 12 months: This patient has received 0 known CTs and 0 known cardiac nuclear medicine studies in the 12 months prior to the current study. COMPARISON: NM bone scan whole body* [id number] 10/06/2017 8:22 AM RADIATION DOSE METRICS: Total DLP (mGy-cm): 1054.95 FINDINGS: Brain: No focal hemorrhage or midline shift is identified. The ventricles and parenchyma show mild atrophy and chronic bicerebral white matter ischemic change. Cerebral ventricles: No ventriculomegaly or evidence of hydrocephalus. Paranasal sinuses: No evidence of acute sinusitis. Mastoid air cells: Visualized mastoid air cells are well aerated. Bones/joints: No displaced skull fracture is noted. Soft tissues: Unremarkable. Vasculature: Diffuse vascular calcifications are present. CT/CT head wo con* [id number] IMPRESSION: 1. No acute intracranial abnormality. 2. Mild age-related changes.
[2023-05-19 20:45] LABS: Acetaminophen < 5.0 ug/mL (10-30); Alcohol Level < 10 mg/dL (0-10); Salicylate < 0.3 mg/dL (3-10)
--- NOTE | 2023-05-19 21:29 | P.HP_ITS ---
Providers/Chief Complaint Admitting Physician: Shalonda Wong MD Primary Care Provider: Jerzy Schafer MD Chief Complaint: infection LT leg History of Present Illness Mounika Kenney is a 63 year old female with history of arthritis, current everyday smoker, who presented to the ER after being sent from urgent care for complaint of redness and swelling and a wound on her arm and leg. She states that she got [place] in [place] and was possibly scratched by them outside on 14 May. At that time she had some bleeding but did not really require any further medical attention. She did try to put some sort of an ointment on it but feels it may have worsened. She has noticed increased redness swelling and now there is an appointment. She says it is extending from her leg only up to the groin at this time. There are not really any nodules that she can feel. There is also pain along with a lesions or. She went to urgent care today and was seen by Dr. Ventura. At that time she also complained of a severe headache left upper arm is also sore. She was sent to the hospital via ambulance and she did not have a ride. She does complain of mild headaches and has had some nausea. She feels tired fatigued and has generalized malaise. She has not been on any antibiotics as an outpatient. Denies having a fever at home. ED course: Blood pressure 110/93 pulse rate 18, pulse 99, temperature 98.4 saturating 94% on room air. Patient did seem somewhat confused therefore head CT was done which was unremarkable for any acute pathology. WBC 9.8, hemoglobin 11.2, platelet 326, ESR 40, CRP 78. She also had blood cultures, drug screen, urinalysis done. TSH ordered. Results are pending at this time. Patient given 2 g of vancomycin and IV clindamycin. She did not receive any IV fluids in the ER. Lactic acid is normal. Medications/Allergies Home Medications Medication Instructions Recorded Confirmed Last Taken Type duloxetine 30 mg capsule,delayed 30 mg PO DAILY 11/30/19 05/19/23 07/17/20 History release (Cymbalta) fluticasone propionate 50 2 spray intranasal DAILY 11/30/19 05/19/23 07/17/20 History mcg/actuation nasal spray,suspension montelukast 10 mg tablet 10 mg PO DAILY 11/30/19 05/19/2307/17/20 History (Singulair) omeprazole magnesium 20 mg 20 mg PO BID 11/30/19 05/19/23 07/17/20 History tablet,delayed release (Prilosec OTC) promethazine 25 mg tablet 25 mg PO QID PRN Nausea 11/30/19 05/19/23 Unknown History albuterol sulfate 90 mcg/actuation 2 puff inhalation QID PRN asthma 12/01/19 05/19/23 06/19/20 History aerosol inhaler (Proventil HFA) cetirizine 10 mg tablet 10 mg PO DAILY 12/01/19 05/19/23 07/17/20 History eletriptan 20 mg tablet (Relpax) 40 mg PO DAILY PRN Migraine 05/11/20 05/19/23 Unknown History Headache ibuprofen 800 mg tablet 800 mg PO TID PRN pain #60 tabs 06/28/20 05/19/23 Unknown Rx buspirone 15 mg tablet 15 mg PO BID 07/18/20 05/19/23 07/17/20 History polyethylene glycol 3350 17 gram 17 g PO PRN 07/18/20 05/19/23 Unknown History oral powder packet (Miralax) simethicone 125 mg capsule (Gas 125 mg PO Q4H PRN abdominal 07/18/20 05/19/23 07/17/20 History Relief (simethicone)) distention ferrous sulfate 325 mg (65 mg 325 mg PO BID #60 tabs 07/19/20 05/19/23 Unknown Rx iron) tablet (Iron (ferrous sulfate)) betamethasone valerate 0.1 % 1 applic topical BID PRN 03/14/21 05/19/23 Unknown History topical cream budesonide-formoterol HFA 80 2 puff inhalation BID 03/14/21 05/19/23 Unknown History mcg-4.5 mcg/actuation aerosol inhaler (Symbicort) hydrocortisone 2.5 % topical cream 1 applic GA DAILY PRN 03/14/21 05/19/23 Unk nown History with perineal applicator (Procto-Med HC) loratadine 10 mg tablet (Allergy 10 mg PO DAILY 03/14/21 05/19/23 Unknown History Relief (loratadine)) silver sulfadiazine 1 % topical 1 applic topical BID #50 grams 03/14/21 05/19/23 Unknown Rx cream azithromycin 250 mg tablet See Rx Instructions PO .COMPLEX #6 03/31/21 05/19/23 Unknown Rx tabs gabapentin 800 mg tablet 800 mg PO TID 30 days #90 tabs 04/09/22 05/19/23 Unknown Rx meloxicam 15 mg tablet 15 mg PO DAILY #30 tabs 04/09/22 05/19/23 Unknown Rx doxycycline hyclate 100 mg capsule 100 mg PO BID 14 days #28 caps 01/01/23 05/19/23 Unknown Rx mupirocin 2 % topical ointment 1 applic topical BID #15 grams 01/01/23 05/19/23 Unknown Rx Allergies Allergy/AdvReac Type Severity Reaction Status Date / Time codeine Allergy UNKNOWN Verified 05/19/23 18:06 Penicillins Allergy UNKNOWN Verified 05/19/23 18:06 PFSH Acute PFSH: Medical History (Updated 05/19/23 @ 20:54 by Mychal Piedra MD) Aftercare following surgery of the genitourinary system Arthritis Current every day smoker Urinary incontinence Surgical History H/O breast biopsy Family History Mother Breast cancer, Onset Age: 82 Ovarian cancer Uterine cancer Hyperlipidemia Sister Breast cancer Ovarian cancer Uterine cancer Clotting disorder Stroke Thyroid condition Father Anesthesia complication Brother Clotting disorder CAD (coronary artery disease) Son Diabetes Denies family history of Bleeding disorder Hypertension Social History Smoking and tobacco status: current every day smoker cigarettes Packs smoked per day: 1 Alcohol intake: current Alcohol intake frequency: holidays/special occasions on ly Alcohol type: hard liquor Substance/Drug Use: former Date of last use: THC Vitals/I&O/Wt Last Vital Signs Temp 98.4 F 05/19/23 18:54 Pulse 88 05/19/23 20:01 Resp 18 05/19/23 19:50 BP 128/78 05/19/23 20:01 Pulse Ox 96 05/19/23 20:01 O2 Del Method Room Air 05/19/23 20:01 05/19/23 05/19/23 05/19/23 06:59 14:59 22:59 Intake Total 50 / 50 Balance 50 / 50 Physical Exam Narrative: General: Alert oriented x3, patient seen laying in bed. No acute distress at this time. HEENT: Normocephalic, atraumatic, EOMI, breathing room air. Cardio: Regular rate rhythm, normal S1-S2, Respiratory: Clear to auscultation bilaterally no wheezes no rhonchi GI: Abdomen soft, nontender, bowel sounds + Extremities: 2.3 cm ulcerating lesion present on right leg. Warmth and tenderness also present. Lesion is tender and does have significant erythema along the lymphatic track. Left upper extremity also has a 1 cm x 1 cm ulcerating lesion with no central necrosis present. There is surrounding redness tenderness as well as warmth present. Lesions are nondraining at this time. There is significant tenderness to palpation around the areas. Data 05/19/23 19:05 05/19/23 19:05 Micro: Microbiology 05/19/23 19:05 Blood Culture - Preliminary Blood SPECIMEN COLLECTED 05/19/23 19:12 Blood Culture - Preliminary Blood SPECIMEN COLLECTED A&P Assessment and plan (1) Cellulitis: (2) Altered mental status: (3) Leg wound, right: (4) Chronic low back pain: (5) Arthritis: (6) Current every day smoker: Plan #Cellulitis left upper and lower extremity, suspicious of sporotrichosis #Arthritis -CRP 78, ESR 40. I will check CT right upper and left lower extremity to rule out deep underlying abscess ? Monitor patient for fever. No leukocytosis at this time but it could be very early infection ? Continue patient on IV clindamycin as that would cover for MRSA as well as provide toxin suppression. Patient is allergic to penicillins. ? We may need to broaden antibiotic coverage pending clinical course. - I would start itraconazole 100 mg daily at this time. Pt may need ID follow up at discharge. May deescalate based on re-evaluation in AM. ? Check blood cultures, urine culture, procalcitonin ? Trend CRP ? We will give normal saline 125 cc/h ? Med rec needs to be completed. -Patient on albuterol and budesonide at home. Patient DuoNebs every 6 hours - Check TSH, UA, urine culture - Check vitamin B12 - Patient does not meet sepsis criteria at this time. - Initially metabolic encephalopathy workup was started off in ER due to patient being somewhat altered however when i evaluted her she was AOx4 and not altered at all. It may have been a transient finding initially that has now improved. Full Code SCDS, Heparin Sub cu BID. Attestations Medical Necessity Statement*: > 2 midnight stay for cellulitis Coding Level of Care Code G0426 (50 min) TH Encounter Time (min): 50 Patient seen via Telehealth in the acute care setting (hospital or ED location) by agreement and consent of patient or patient field support representative. Telehealth technology used during the visit includes video and audio. This patient encounter is appropriate and reasonable under the circumstances given the patient?s particular presentation at this time. The patient has been advised of the potential risks and limitations of this mode of treatment (including but not limited to the absence of in-person examination at this time) and has agreed to be treated by an off-site physician for this visit. If deemed clinically necessary from this telehealth visit, or if condition or consent for telehealth visit changes, an in-person visit will be arranged. For this encounter, total time for the origination of telehealth care on this date is as shown. Diagnoses Cellulitis L03.90 Altered mental status R41.82 Leg wound, right S81.801A Chronic low back pain M54.5; G89.29 Arthritis M19.90 Current every day smoker F17.200
[2023-05-19] MEDS: heparin 5,000 unit/mL INJ 1 mL 5000 UNIT SUBCUT (21:56)
[2023-05-19] MEDS: sodium chloride 0.9% 1,000 ML 125 ML IV (21:57)
--- NOTE | 2023-05-19 21:58 | USR_ITS ---
PROCEDURE INFORMATION: Exam: US Duplex Left Lower Extremity Arteries Or Arterial Bypass Grafts Exam date and time: 05/19/2023 11:21 PM Age: 63 years old Clinical indication: Other: Open sore medial left calf x 2-3 days; Patient HX: Long-term smoker continues smoking. No dm. She denies prior history of non-healing ulcers. ; Additional info: Ulcerating lesion TECHNIQUE: Imaging protocol: Left Real-time duplex scan of the arteries or arterial bypass grafts of the left lower extremity with 2-D akins scale, color Doppler flow and spectral waveform analysis. Images documented and saved. COMPARISON: US soft tissue/extremity [id number] 08/16/2018 8:59 AM FINDINGS: Left common femoral artery: No occlusion or significant stenosis. Generally biphasic waveform. Left superficial femoral artery: No occlusion or significant stenosis. Generally monophasic waveform. Left popliteal artery: No occlusion or significant stenosis. Mixed waveform. Left calf/foot arteries: No occlusion or significant stenosis in the visualized arteries. Monophasic waveforms. Dorsalis pedis artery is patent. US/CV arterial duplex [facility] [id number] IMPRESSION: 1. No left leg artery stenosis or occlusion. 2. The waveform patterns do suggest a more proximal stenotic vascular lesion, possible at the aortic or proximal iliac level. A CTA may be considered if indicated.
--- NOTE | 2023-05-19 21:58 | USR_ITS ---
PROCEDURE INFORMATION: Exam: US Duplex Left Upper Extremity Arteries Exam date and time: 05/19/2023 10:44 PM Age: 63 years old Clinical indication: Other: Open sore lateral aspect of left upper arm x 2-3 days. ; Additional info: Ulcerating lesion TECHNIQUE: Imaging protocol: Left Real-time ultrasound scan of the arteries of the left upper extremity with 2-D akins scale, color Doppler flow and spectral waveform analysis. COMPARISON: US soft tissue/extremity [id number] 08/16/2018 8:59 AM FINDINGS: Left subclavian artery: No occlusion or significant stenosis. Normal waveform. Left axillary artery: No occlusion or significant stenosis. Normal waveform. Left brachial artery: No occlusion or significant stenosis. Normal waveform. Left radial artery: No occlusion or significant stenosis. Normal waveform. Left ulnar artery: No occlusion or significant stenosis. Normal waveform. Soft tissues: Unremarkable. US/[place] [id number] IMPRESSION: No acute findings. At this time there is no hemodynamic evidence to suggest thoracic outlet pathology.
[2023-05-19 22:10] LABS: Procalcitonin 0.04 ng/mL (0-0.5)
[2023-05-19 22:10] LABS: ABG PCO2 46.5 mmHg (35-45); ABG PH Result 7.38 (7.35-7.45); Alveolar-Arterial Oxygen Gradi 2.4 mmHg (5-10); Arterial Blood Gas Hematocrit 31.8 % (37-47); Blood Gas Operator Identificat AMH; Blood Gas Sample Site Brachial, left; Blood Gas Sample Type Arterial; Carboxyhemoglobin 2.6 %THgb (0.4-20.1); HCO3 ABG 27.6 mmol/L (22-26); HGB O2 Sat 92.3 % (95-100); Ionized Calcium Level - ABG 1.2 mmol/L (1.1-1.4); Methemoglobin 0.5 % (0.4-1.5); Oxygen Device ROOM AIR; Oxygen Saturation ABG 95.2; PO2 ABG 73.6 mmHg (80.0-100.0); Potassium Level - ABG 3.5 mmol/L (3.5-5.0); Total Hemoglobin 10.4 g/dL (12-16)
[2023-05-19 22:15] LABS: Estmated Average Glucose 103; Hemoglobin A1C 5.2 % (4.0-6.0)
[2023-05-19 22:46] LABS: Add Urine Microscopic? YES; Bilirubin Urine Neg (Negative); Blood Urine Neg (Negative); Glucose Urine UA Norm (Normal); Ketones Urine Negative (Negative); Leukocyte Esterase Urine Trace (Negative); Nitrate Urine Negative (Negative); Protein Urine Neg (Negative); Specific Gravity, Urine 1.015 (1.005-1.030); Urine Appearance SL Hazy (CLEAR); Urine Color Yellow (Yellow); Urobilinogen Urine Neg (Negative); pH Urine 6 (5-7)
[2023-05-19 22:47] LABS: Add Urine Culture? Yes; Bacteria Urine 1+ /hpf; Mucus Urine 2+ /hpf
[2023-05-19 22:48] LABS: Amphetamines Screen Urine Positive (Negative); Barbiturates Screen Urine Negative (Negative); Benzodiazepines Screen Urine Positive (Negative); Cocaine Screen Urine Negative (Negative); Opiate Screen Urine Negative (Negative); PCP Screen Urine Negative (Negative); THC Screen Urine Positive (Negative)
--- NOTE | 2023-05-19 23:17 | CTR_ITS ---
PROCEDURE INFORMATION: Exam: CT Left Lower Extremity With Contrast Exam date and time: 05/20/2023 12:50 AM Age: 63 years old Clinical indication: Ankle and foot and lower leg and thigh; Patient HX: Cellulitis to left lower leg with streaking up thigh; Additional info: Cellulitis, r//o underlying abscess TECHNIQUE: Imaging protocol: CT of the left lower extremity with intravenous contrast was performed. Radiation optimization: All CT scans at this facility use at least one of these dose optimization techniques: automated exposure control; mA and/or kV adjustment per patient size (includes targeted exams where dose is matched to clinical indication); or iterative reconstruction. Contrast material: OMNI 350; Contrast volume: 75 ml; Contrast route: INTRAVENOUS (IV); REPORTING DATA: Count of CT and Cardiac NM exams in prior 12 months: This patient has received 0 known CTs and 0 known cardiac nuclear medicine studies in the 12 months prior to the current study. COMPARISON: NM bone scan whole body* [id number] 10/06/2017 8:22 AM RADIATION DOSE METRICS: Total DLP (mGy-cm): 1004.38 FINDINGS: Bones/joints: No acute fracture or dislocation noted. No suspicious bone lesion is identified. Proximal fibular old deformity likely. Evaluation of the midfoot and distal foot is obscured by motion. Soft tissues: Moderate left ankle and foot subcutaneous edema. Mild left lower leg subcutaneous edema. No evidence of soft tissue gas. Vasculature: Left femoral vein is paired in places. No evidence of arterial occlusion or strong evidence of DVT. Lymph nodes: Large left groin lymph node measures up to 2.[address]/CT lower leg LT w con [id number] IMPRESSION: 1. Left lower leg, ankle and foot probable cellulitis. No abscess is noted. 2. No fracture or focal bone destruction noted. If symptoms progress or persist, an MRI may be helpful if indicated. 3. Moderate left groin likely reactive lymphadenopathy.
--- NOTE | 2023-05-19 23:17 | CTR_ITS ---
PROCEDURE INFORMATION: Exam: CT Left Upper Extremity With Contrast, Upper Arm Exam date and time: 05/20/2023 12:43 AM Age: 63 years old Clinical indication: Other: Cellulitis; Additional info: Cellulitis, r//o underlying abscess TECHNIQUE: Imaging protocol: Computed tomography of the left upper extremity with contrast. Exam focused on the upper arm. Radiation optimization: All CT scans at this facility use at least one of these dose optimization techniques: automated exposure control; mA and/or kV adjustment per patient size (includes targeted exams where dose is matched to clinical indication); or iterative reconstruction. Contrast material: OMNI 350; Contrast volume: 75 ml; Contrast route: INTRAVENOUS (IV); REPORTING DATA: Count of CT and Cardiac NM exams in prior 12 months: This patient has received 0 known CTs and 0 known cardiac nuclear medicine studies in the 12 months prior to the current study. COMPARISON: NM bone scan whole body* [id number] 10/06/2017 8:22 AM RADIATION DOSE METRICS: Total DLP (mGy-cm): 831.57 FINDINGS: Bones/joints: Normal. No acute fracture or dislocation. Soft tissues: There is left lateral upper arm skin thickening and subcutaneous edema on series 9, image 109. No abscess or soft tissue gas. CT/CT humerus LT w con [id number] IMPRESSION: 1. No fracture, soft tissue gas, or evidence of abscess. 2. Left upper lateral arm subcutaneous edema/cellulitis.
[2023-05-20] VITALS (9 sets, daily range): BP systolic 120–158; BP diastolic 73–84; PULSE 63–89; RESP 16–19; TEMP 36.3–36.6; O2SAT 95–99
[2023-05-20] MEDS: clindamycin 600 MG/50 ML PREMIX 100 MG IV ×3 (04:11→20:17)
[2023-05-20 05:55] LABS: Basophils # 0.1 10^3/uL (0.0-0.1); Basophils % 0.9 %; Eosinophils # 0.2 10^3/uL (0.0-0.8); Eosinophils % 2.3 %; Hemoglobin 10.2 g/dL (11.5-15.3); Lymphocytes # 2.2 10^3/uL (0.8-4.8); Lymphocytes % 31.4 %; Mean Corpuscular HGB Conc 31.9 g/dL (30.0-36.0); Mean Corpuscular Hemoglobin 29.7 pg (28.0-34.0); Mean Platelet Volume 9.8 fL (7.4-10.4); Monocytes # 0.7 10^3/uL (0.2-0.9); Monocytes % 10.4 %; Neutrophils # 3.75 10^3/uL (1.8-7.7); Neutrophils % 54.7 %; Nucleated Red Blood Cells % 0 %; Platelet Count 280 10^3/cmm (130-400); Red Blood Count 3.44 10^6/uL (4.1-5.3); Red Cell Distribution Width 11.8 % (12.1-15.1); White Blood Count 6.9 10^3/uL (4.0-10.0)
[2023-05-20 06:15] LABS: Anion Gap 12.6 (5-19); Blood Urea Nitrogen 7 mg/dL (8-23); Calcium 8.3 mg/dL (8.5-10.5); Carbon Dioxide 24 mmol/L (22-29); Chloride 104 mmol/L (98-107); Glucose 131 mg/dL (65-115); Magnesium 1.8 mg/dL (1.7-2.3); Osmolality Calculated 284 mOsm/kg (285-295); Potassium 3.6 mmol/L (3.5-5.1); Sodium 137 mmol/L (136-145)
[2023-05-20] MEDS: sodium chloride 0.9% 1,000 ML 125 ML IV (06:36)
--- NOTE | 2023-05-20 09:10 | PC.CHAP ---
Pastoral Care Encounter/Spiritual Assessment Type of Contact [] Declined welder visit [] Patient/Family/Request visit [] Outpatient visit [] Follow-up visit [] Physician referral [] Code/Alert [] Routine visit [] Staff referral [] Actively dying [x] Patient sleeping [] Family support [] [] Out of room [] Palliative care [] [] Receiving care in room [] Pre-surgical visit [] Trauma [] Long length of stay [] ICU visit [] Other: Relational/Emotional Strength [] Patient feels connected with others/family/visitors/staff [] Distress [] Loneliness/isolation [] Abandonment Spirituality of Patient [] Person of Yarely [] Attends Jew of their Yarely [] Believes in Prayer [] Reads Bible or Jainism materials [] There are Spiritual issues to be addressed Delivery Table Feeder Interventions [] Prayer [] Active listening [] Non-anxious presence [] Spiritual/emotional support [] Crisis/trauma care [] Spiritual counseling [] Bereavement support [] Provided bereavement packet [] Provided Bible/devotional materials [] Provided toy/stuffed animal, coloring book to patient or family member [] Provided Communion [] Anointing/[place] [] Salvation [] Completed spiritual assessment [] Other: Impact on Illness or Injury [] Angry [] Fearful [] Anxious [] Often cries [] Exhaustion [] Unable to work [] Unable to attend episcopal [] Unable to walk/stand [] Unable to read [] Unable to drive [] Unable to eat/drink [] Unable to sleep [] Unable to be with family [] Patient intubated [] Other: Summary Time spent with patient
[2023-05-20] MEDS: heparin 5,000 unit/mL INJ 1 mL 5000 UNIT SUBCUT ×2 (09:23→20:52)
[2023-05-20] MEDS: cefepime 1,000 MG in sodium chloride 0.9% (plus) 50 ML 100 MG IV ×2 (11:18→22:04)
[2023-05-20] MEDS: vancomycin 1,000 MG in sodium chloride 0.9% 250 ML 250 MG IV ×2 (11:56→22:59)
--- NOTE | 2023-05-20 18:45 | PM.PN ---
Subjective Subjective: Patient was seen and examined this morning, denied any significant pain in the left lower extremity, has been afebrile, blood cultures have been drawn, white blood cell count is normal, U-Tox results appreciated, positive for amphetamine benzodiazepine and marijuana. CT scan of upper and lower extremity results appreciated: No abscess no osteomyelitis, indicative of cellulitis.ESR:40 CRP: 78 , procalcitonin: 0.04, lactic acid:0.7 , UA suggestive of possible UTI. Given her history of amphetamine use, for now we will broaden antibiotic coverage to vancomycin and cefepime, follow blood culture. Medications: Medication Review Details: Generic Name Dose Route Start Last Admin Trade Name Freq PRN Reason Stop Dose Admin Heparin Sodium (Po rcine) 5,000 unit 05/19/23 21:30 05/20/23 09:23 Heparin 5,000 Un it/Ml Inj 1 Ml SUBCUT 5,000 unit Q12H JOSÉ MANUEL Administration Clindamycin HCl/De xtrose 600 mg in 50 mls @ 100 mls/hr 05/20/23 04:00 05/20/23 13:58 Cleocin IV Infused Q8H JOSÉ MANUEL Infusion Protocol Cefepime HCl 1,000 mg/ Sodium 50 mls @ 100 mls/ hr 05/20/23 10:30 05/20/23 11:48 Chloride IV Infused Q12H JOSÉ MANUEL Infusion Protocol Vancomycin HCl 1,0 00 mg/ 250 mls @ 250 mls /hr 05/20/23 11:00 05/20/23 12:56 Sodium Chloride IV Infused Q12H JOSÉ MANUEL Infusion Itraconazole 100 mg 05/20/23 09:00 05/20/23 09:23 Itraconazole 100 Mg Capsule PO 100 mg DAILY JOSÉ MANUEL Administration Vitals/I&O/Wt Last Vital Signs Temp 97.4 F L 05/20/23 16:00 Pulse 63 05/20/23 16:00 Resp 16 05/20/23 16:00 BP 158/82 05/20/23 16:00 Pulse Ox 96 05/20/23 16:00 O2 Del Method Room Air 05/20/23 15:19 05/20/23 05/20/23 05/20/23 06:59 14:59 22:59 Intake Total 1410 / 1860 2065.833 / 2065.833 240 / 2305.833 Balance 1410 / 1860 2065.833 / 2065.833 240 / 2305.833 Weight last 48 hrs Weight 62.596 kg Physical Exam Const: COMMON NORMALS: patient oriented x3 HENMT: COMMON NORMALS: normocephalic and atraumatic HEAD & SCALP: normocephalic and atraumatic Resp: COMMON NORMALS: clear to auscultation bilaterally EFFORT & INSPECTION: Yes symmetric chest movement AUSCULTATION: clear to auscultation bilaterally Cardio: COMMON NORMALS: regular rate, regular rhythm, S1 normal heart sound present, S2 normal heart sound present, No gallops present (Cardio), No murmurs present (Cardio), No rub (Cardio) and Peripheral pulses 2+ throughout RATE: regular rate RHYTHM: regular rhythm HEART SOUNDS: S1 normal heart sound present and S2 normal heart sound present PERIPHERAL PULSES: Peripheral pulses 2+ throughout GI: COMMON NORMALS: Normal to inspection, nondistended, normoactive bowel sounds present, Soft to palpation, non-tender, No hepatosplenomegaly present and no masses AUSCULTATION: Yes normoactive bowel sounds PALPATION: Yes Soft to palpation and Yes No hepatosplenomegaly present RECTAL EXAM: deferred Extremity: COMMON NORMALS: no clubbing, cyanosis or edema and no pedal edema OTHER: Left lower extremity ulcerous lesion present, redness minimal swelling present, no significant tenderness, no significant discharge, left upper extremity small wound with redness and minimal swelling present. Neuro: COMMON NORMALS: patient oriented x3 Data 05/20/23 05:20 05/20/23 05:20 Micro: Microbiology 05/19/23 19:05 Blood Culture - Preliminary Blood SPECIMEN COLLECTED 05/19/23 19:12 Blood Culture - Preliminary Blood SPECIMEN COLLECTED A&P Assessment and plan (1) Cellulitis: (2) Altered mental status: (3) Leg wound, right: (4) Chronic low back pain: (5) Arthritis: (6) Current every day smoker: Plan #Cellulitis left upper and lower extremity, suspicious of sporotrichosis #Arthritis Blood cultures have been drawn, white blood cell count is normal, U-Tox results appreciated, positive for amphetamine benzodiazepine and marijuana. CT scan of upper and lower extremity results appreciated: No abscess no osteomyelitis, indicative of cellulitis.ESR:40 CRP: 78 , procalcitonin: 0.04, lactic acid:0.7 , UA suggestive of possible UTI. Given her history of amphetamine use, for now we will broaden antibiotic coverage to vancomycin and cefepime, follow blood culture Currently on itraconazole 100 mg daily at this time. Pt may need ID follow up at discharge. Makayla salinas - Initially metabolic encephalopathy workup was started off in ER due to patient being somewhat altered however when i evaluted her she was AOx4 and not altered at all. It may have been a transient finding initially that has now improved. Full Code SCDS, Heparin Sub cu BID. Attestations Medical Necessity Statement*: Needs to be in hospital for IV antibiotic. Coding Level of Care Code Acute Code for [facility] Diagnoses Cellulitis L03.90 Altered mental status R41.82 Leg wound, right S81.801A Chronic low back pain M54.5; G89.29 Arthritis M19.90 Current every day smoker F17.200
[2023-05-21] VITALS (7 sets, daily range): BP systolic 119–154; BP diastolic 55–89; PULSE 73–84; RESP 15–18; TEMP 36.4–37; O2SAT 96–99
[2023-05-21] MEDS: clindamycin 600 MG/50 ML PREMIX 100 MG IV ×3 (04:07→19:51)
[2023-05-21 06:00] LABS: Basophils # 0.1 10^3/uL (0.0-0.1); Basophils % 0.7 %; Eosinophils # 0.1 10^3/uL (0.0-0.8); Eosinophils % 1.5 %; Hemoglobin 12.2 g/dL (11.5-15.3); Lymphocytes # 2.1 10^3/uL (0.8-4.8); Lymphocytes % 29.4 %; Mean Corpuscular HGB Conc 32.1 g/dL (30.0-36.0); Mean Corpuscular Hemoglobin 29.1 pg (28.0-34.0); Mean Corpuscular Volume 90.7 fl (81-99); Mean Platelet Volume 9.8 fL (7.4-10.4); Monocytes # 0.5 10^3/uL (0.2-0.9); Monocytes % 6.7 %; Neutrophils # 4.38 10^3/uL (1.8-7.7); Neutrophils % 61.1 %; Nucleated Red Blood Cells % 0 %; Platelet Count 348 10^3/cmm (130-400); Red Blood Count 4.19 10^6/uL (4.1-5.3); Red Cell Distribution Width 11.6 % (12.1-15.1); White Blood Count 7.2 10^3/uL (4.0-10.0)
[2023-05-21 06:23] LABS: Alanine Aminotransferase 10 U/L (0-33); Albumin Level 3.5 g/dL (3.5-5.2); Alkaline Phosphatase 177 U/L (35-105); Anion Gap 12.5 (5-19); Aspartate Amino Transferase 11 U/L (0-32); Blood Urea Nitrogen 6 mg/dL (8-23); Calcium 8.9 mg/dL (8.5-10.5); Carbon Dioxide 29 mmol/L (22-29); Chloride 104 mmol/L (98-107); Globulin 3.6 g/dL (1.3-4.6); Glucose 93 mg/dL (65-115); Osmolality Calculated 291 mOsm/kg (285-295); Potassium 3.5 mmol/L (3.5-5.1); Sodium 142 mmol/L (136-145); Total Bilirubin 0.2 mg/dL (0.15-1.2); Total Protein 7.1 g/dL (6.6-8.7)
[2023-05-21] MEDS: heparin 5,000 unit/mL INJ 1 mL 5000 UNIT SUBCUT ×2 (09:23→21:01)
[2023-05-21] MEDS: cefepime 1,000 MG in sodium chloride 0.9% (plus) 50 ML 100 MG IV ×2 (10:35→22:50)
[2023-05-21] MEDS: vancomycin 1,000 MG in sodium chloride 0.9% 250 ML 250 MG IV (11:08)
--- NOTE | 2023-05-21 12:44 | PC.CHAP ---
Pastoral Care Encounter/Spiritual Assessment Type of Contact [] Declined education analyst visit [] Patient/Family/Request visit [] Outpatient visit [] Follow-up visit [] Physician referral [] Code/Alert [x] Routine visit [] Staff referral [] Actively dying [] Patient sleeping [] Family support [] [] Out of room [] Palliative care [] [x] Receiving care in room [] Pre-surgical visit [] Trauma [] Long length of stay [] ICU visit [] Other: Relational/Emotional Strength [x] Patient feels connected with others/family/visitors/staff [] Distress [] Loneliness/isolation [] Abandonment Spirituality of Patient [x] Person of Yarely [] Attends Amish of their Yarely [x] Believes in Prayer [] Reads Bible or Restorationism materials [] There are Spiritual issues to be addressed Test Examiner Interventions [x] Prayer [x] Active listening [x] Non-anxious presence [x] Spiritual/emotional support [] Crisis/trauma care [x] Spiritual counseling [] Bereavement support [] Provided bereavement packet [] Provided Bible/devotional materials [] Provided toy/stuffed animal, coloring book to patient or family member [] Provided Communion [] Anointing/[place] [] Salvation [x] Completed spiritual assessment [] Other: Impact on Illness or Injury [] Angry [] Fearful [] Anxious [] Often cries [] Exhaustion [] Unable to work [] Unable to attend samaritan [] Unable to walk/stand [] Unable to read [] Unable to drive [] Unable to eat/drink [] Unable to sleep [] Unable to be with family [] Patient intubated [] Other: Summary infection in leg doesn't know when she well go home has a good attitude Time spent with patient 10 mjns
[2023-05-21] MEDS: nicotine 14 mg Patch 1 PATCH TRANSDERMA (16:16)
--- NOTE | 2023-05-21 18:50 | PM.PN ---
Subjective Subjective: Patient was seen and examined this morning, has remained afebrile blood culture is so far negative. Medications: Medication Review Details: Generic Name Dose Route Start Last Admin Trade Name Tuan PRN Reason Stop Dose Admin Heparin Sodium (Po rcine) 5,000 unit 05/19/23 21:30 05/20/23 09:23 Heparin 5,000 Un it/Ml Inj 1 Ml SUBCUT 5,000 unit Q12H JOSÉ MANUEL Administration Clindamycin HCl/De xtrose 600 mg in 50 mls @ 100 mls/hr 05/20/23 04:00 05/20/23 13:58 Cleocin IV Infused Q8H JOSÉ MANUEL Infusion Protocol Cefepime HCl 1,000 mg/ Sodium 50 mls @ 100 mls/ hr 05/20/23 10:30 05/20/23 11:48 Chloride IV Infused Q12H JOSÉ MANUEL Infusion Protocol Vancomycin HCl 1,0 00 mg/ 250 mls @ 250 mls /hr 05/20/23 11:00 05/20/23 12:56 Sodium Chloride IV Infused Q12H JOSÉ MANUEL Infusion Itraconazole 100 mg 05/20/23 09:00 05/20/23 09:23 Itraconazole 100 Mg Capsule PO 100 mg DAILY JOSÉ MANUEL Administration Vitals/I&O/Wt Last Vital Signs Temp 97.6 F 05/21/23 15:51 Pulse 74 05/21/23 15:51 Resp 16 05/21/23 15:51 BP 154/79 05/21/23 15:51 Pulse Ox 99 05/21/23 15:51 O2 Del Method Room Air 05/21/23 15:51 05/21/23 05/21/23 05/21/23 06:59 14:59 22:59 Intake Total 300 / 2705.833 710 / 710 Balance 300 / 2705.833 710 / 710 Weight last 48 hrs Weight 62.596 kg Physical Exam Const: COMMON NORMALS: patient oriented x3 HENMT: COMMON NORMALS: normocephalic and atraumatic HEAD & SCALP: normocephalic and atraumatic Resp: COMMON NORMALS: clear to auscultation bilaterally EFFORT & INSPECTION: Yes symmetric chest movement AUSCULTATION: clear to auscultation bilaterally Cardio: COMMON NORMALS: regular rate, regular rhythm, S1 normal heart sound present, S2 normal heart sound present, No gallops present (Cardio), No murmurs present (Cardio), No rub (Cardio) and Peripheral pulses 2+ throughout RATE: regular rate RHYTHM: regular rhythm HEART SOUNDS: S1 normal heart sound present and S2 normal heart sound present PERIPHERAL PULSES: Peripheral pulses 2+ throughout GI: COMMON NORMALS: Normal to inspection, nondistended, normoactive bowel sounds present, Soft to palpation, non-tender, No hepatosplenomegaly present and no masses AUSCULTATION: Yes normoactive bowel sounds PALPATION: Yes Soft to palpation and Yes No hepatosplenomegaly present RECTAL EXAM: deferred Extremity: COMMON NORMALS: no clubbing, cyanosis or edema and no pedal edema OTHER: Left lower extremity ulcerous lesion present, redness minimal swelling present, no significant tenderness, no significant discharge, left upper extremity small wound with redness and minimal swelling present. Neuro: COMMON NORMALS: patient oriented x3 Data 05/21/23 05:29 05/21/23 05:29 Micro: Microbiology 05/19/23 22:30 Urine Culture - Preliminary Urine,Clean Catch 05/19/23 19:12 Blood Culture - Preliminary Blood NEGATIVE TO DATE 05/19/23 19:05 Blood Culture - Preliminary Blood NEGATIVE TO DATE A&P Assessment and plan (1) Cellulitis: (2) Altered mental status: (3) Leg wound, right: (4) Chronic low back pain: (5) Arthritis: (6) Current every day smoker: Plan #Cellulitis left upper and lower extremity, suspicious of sporotrichosis #Arthritis Blood cultures have been drawn, white blood cell count is normal, U-Tox results appreciated, positive for amphetamine benzodiazepine and marijuana. CT scan of upper and lower extremity results appreciated: No abscess no osteomyelitis, indicative of cellulitis.ESR:40 CRP: 78 , procalcitonin: 0.04, lactic acid:0.7 , UA suggestive of possible UTI. Given her history of amphetamine use, for now we will broaden antibiotic coverage to vancomycin and cefepime, follow blood culture Currently on itraconazole 100 mg daily at this time. Pt may need ID follow up at discharge. Makayla marieate - Initially metabolic encephalopathy workup was started off in ER due to patient being somewhat altered however when i evaluted her she was AOx4 and not altered at all. It may have been a transient finding initially that has now improved. Full Code SCDS, Heparin Sub cu BID. Attestations Medical Necessity Statement*: Needs to be in hospital IV antibiotics. Coding Level of Care Code Acute Code for [facility] Diagnoses Cellulitis L03.90 Altered mental status R41.82 Leg wound, right S81.801A Chronic low back pain M54.5; G89.29 Arthritis M19.90 Current every day smoker F17.200
[2023-05-22 00:09] LABS: Vancomycin Trough 14.1 ug/mL (10-15)
[2023-05-22 00:12] VITALS: BP 122/69; PULSE 82; RESP 12; TEMP 36.5; O2SAT 100
[2023-05-22] MEDS: vancomycin 1,000 MG in sodium chloride 0.9% 250 ML 250 MG IV ×2 (00:25→10:36)
[2023-05-22 04:02] VITALS: BP 148/86; PULSE 80; RESP 16; TEMP 36.9; O2SAT 98
[2023-05-22] MEDS: clindamycin 600 MG/50 ML PREMIX 100 MG IV (04:17)
[2023-05-22 04:31] LABS: Basophils # 0.1 10^3/uL (0.0-0.1); Basophils % 0.9 %; Eosinophils # 0.1 10^3/uL (0.0-0.8); Eosinophils % 1.4 %; Hematocrit 36.6 % (37.0-47.0); Hemoglobin 12.2 g/dL (11.5-15.3); Lymphocytes # 2.3 10^3/uL (0.8-4.8); Lymphocytes % 29.3 %; Mean Corpuscular HGB Conc 33.3 g/dL (30.0-36.0); Mean Corpuscular Hemoglobin 29.8 pg (28.0-34.0); Mean Corpuscular Volume 89.3 fl (81-99); Mean Platelet Volume 9.9 fL (7.4-10.4); Monocytes # 0.6 10^3/uL (0.2-0.9); Monocytes % 7.8 %; Neutrophils # 4.76 10^3/uL (1.8-7.7); Nucleated Red Blood Cells % 0 %; Platelet Count 371 10^3/cmm (130-400); Red Cell Distribution Width 11.5 % (12.1-15.1); White Blood Count 7.9 10^3/uL (4.0-10.0)
[2023-05-22 04:49] LABS: Alanine Aminotransferase 8 U/L (0-33); Albumin Level 3.5 g/dL (3.5-5.2); Alkaline Phosphatase 173 U/L (35-105); Anion Gap 12.2 (5-19); Aspartate Amino Transferase 11 U/L (0-32); Blood Urea Nitrogen 6 mg/dL (8-23); Calcium 8.9 mg/dL (8.5-10.5); Carbon Dioxide 28 mmol/L (22-29); Chloride 104 mmol/L (98-107); Globulin 3.5 g/dL (1.3-4.6); Glucose 85 mg/dL (65-115); Osmolality Calculated 289 mOsm/kg (285-295); Potassium 3.2 mmol/L (3.5-5.1); Sodium 141 mmol/L (136-145); Total Bilirubin 0.2 mg/dL (0.15-1.2)
[2023-05-22 08:00] VITALS: BP 136/81; PULSE 78; RESP 16; TEMP 36.4; O2SAT 100
[2023-05-22] MEDS: heparin 5,000 unit/mL INJ 1 mL 5000 UNIT SUBCUT (08:31)
[2023-05-22] MEDS: cefepime 1,000 MG in sodium chloride 0.9% (plus) 50 ML 100 MG IV (10:02)
[2023-05-22 10:33] VITALS: PULSE 89; RESP 18; O2SAT 98
[2023-05-22 11:34] VITALS: PULSE 89; RESP 18; O2SAT 98
--- NOTE | 2023-05-22 17:19 | P.DS_ITS ---
Discharge Providers Date of Admission: 05/19/23 20:54 Date of Discharge: May 22, 2023 Attending Provider at Admission: Shalonda Wong MD Attending Provider at Discharge: Kushal Dunham MD Primary Care Provider: Jerzy Schafer MD Diagnoses at Discharge Discharge Diagnosis (1) Cellulitis: Status: Acute (2) Altered mental status: Status: Acute (3) Leg wound, right: Status: Acute (4) Chronic low back pain: Status: Acute (5) Arthritis: Status: Chronic (6) Current every day smoker: Status: Chronic Reason for Visit Reason for Visit: infection LT leg Hospital Course Hospital Course 63 year old female with history of arthritis, current everyday smoker, who presented to the ER after being sent from urgent care for complaint of redness and swelling and a wound on her arm and leg.? She states that she got caught in the [employer] and was possibly scratched by them outside on 14 May.During the hospital stay she was managed for?right lower extremity wound, given the classic textbook history there was also suspicion for possible sporotrichosis, CT scan of upper and lower extremity results appreciated: No abscess no osteomyelitis, indicative of cellulitis.ESR:40 CRP: 78 , procalcitonin: 0.04, lactic acid:0.7 , UA suggestive of possible UTI. Given her history of amphetamine use, she was kept on broad spectrum antibiotic, itraconazole was continued, blood culture was negative at the time of discharge, his lower extremity wound was improving, she was afebrile hemodynamically stable during hospital stay, was discharged on Bactrim levofloxacin and itraconazole, she will follow with PCP as outpatient.Responded well to above medical man agement. Physical Exam Const: COMMON NORMALS: patient oriented x3 HENMT: COMMON NORMALS: normocephalic and atraumatic HEAD & SCALP: normocephalic and atraumatic Resp: COMMON NORMALS: clear to auscultation bilaterally EFFORT & INSPECTION: Yes symmetric chest movement AUSCULTATION: clear to auscultation bilaterally Cardio: COMMON NORMALS: regular rate, regular rhythm, S1 normal heart sound present, S2 normal heart sound present, No gallops present (Cardio), No murmurs present (Cardio), No rub (Cardio) and Peripheral pulses 2+ throughout RATE: regular rate RHYTHM: regular rhythm HEART SOUNDS: S1 normal heart sound present and S2 normal heart sound present PERIPHERAL PULSES: Peripheral pulses 2+ throughout GI: COMMON NORMALS: Normal to inspection, nondistended, normoactive bowel sounds present, Soft to palpation, non-tender, No hepatosplenomegaly present and no masses AUSCULTATION: Yes normoactive bowel sounds PALPATION: Yes Soft to palpation and Yes No hepatosplenomegaly present RECTAL EXAM: deferred Extremity: COMMON NORMALS: no clubbing, cyanosis or edema and no pedal edema OTHER: Left lower extremity ulcerous lesion present, redness minimal swelling present, no significant tenderness, no significant discharge, left upper extremity small wound with redness and minimal swelling present. Neuro: COMMON NORMALS: patient oriented x3 Discharge Data Studies Completed and Pending Completed Studies During Hospitalization Category Date Time Status CT head wo con* [id number] Stat Cat Scan 05/19/23 20:[address] humerus LT w con [id number] Urgent Cat Scan 05/19/23 23:[address] lower leg LT w con [id number] Urgent Cat Scan 05/19/23 23:17 [place] [id number] Routine Ultrasound 05/19/23 21:58 [place] [id number] Routine Ultrasound 05/19/23 21:58 Completed Pending at discharge Category Date Time Status Blood Culture Stat Lab 05/19/23 19:05 Results Radiology Impressions Head CT 05/19/23 20:13 IMPRESSION: 1. No acute intracranial abnormality. 2. Mild age-related changes. Duplex Scan Lower Extremity Artery 05/19/23 21:58 IMPRESSION: 1. No left leg artery stenosis or occlusion. 2. The waveform patterns do suggest a more proximal stenotic vascular lesion, possible at the aortic or proximal iliac level. A CTA may be considered if indicated. Duplex Scan Upper Extremity Artery 05/19/23 21:58 IMPRESSION: No acute findings. At this time there is no hemodynamic evidence to suggest thoracic outlet pathology. Humerus CT 05/19/23 23:17 IMPRESSION: 1. No fracture, soft tissue gas, or evidence of abscess. 2. Left upper lateral arm subcutaneous edema/cellulitis. Lower Extremity CT 05/19/23 23:17 IMPRESSION: 1. Left lower leg, ankle and foot probable cellulitis. No abscess is noted. 2. No fracture or focal bone destruction noted. If symptoms progress or persist, an MRI may be helpful if indicated. 3. Moderate left groin likely reactive lymphadenopathy. Laboratory Results WBC 7.9 10^3/uL (4.0-10.0) 05/22/23 03:49 RBC 4.10 10^6/uL (4.1-5.3) 05/22/23 03:49 Hgb 12.2 g/dL (11.5-15.3) 05/22/23 03:49 Hct 36.6 % (37.0-47.0) L 05/22/23 03:49 MCV 89.3 fl (81-99) 05/22/23 03:49 MCH 29.8 pg (28.0-34.0) 05/22/23 03:49 MCHC 33.3 g/dL (30.0-36.0) 05/22/23 03:49 RDW 11.5 % (12.1-15.1) L 05/22/23 03:49 Plt Count 371 10^3/cmm (130-400) 05/22/23 03:49 MPV 9.9 fL (7.4-10.4) 05/22/23 03:49 Neut % (Auto) 60.0 % 05/22/23 03:49 Lymph % (Auto) 29.3 % 05/22/23 03:49 Mckean % (Auto) 7.8 % 05/22/23 03:49 Eos % (Auto) 1.4 % 05/22/23 03:49 Baso % (Auto) 0.9 % 05/22/23 03:49 Neut # (Auto) 4.76 10^3/uL (1.8-7.7) 05/22/23 03:49 Lymph # (Auto) 2.3 10^3/uL (0.8-4.8) 05/22/23 03:49 Mckean # (Auto) 0.6 10^3/uL (0.2-0.9) 05/22/23 03:49 Eos # (Auto) 0.1 10^3/uL (0.0-0.8) 05/22/23 03:49 Baso # (Auto) 0.1 10^3/uL (0.0-0.1) 05/22/23 03:49 Nucleated RBC % (auto) 0 % 05/22/23 03:49 Nucleated RBCs # 0.0 /100WBC 05/22/23 03:49 ESR 40 mm/hr (0-15) H 05/19/23 19:05 Specimen Type Arterial 05/19/23 22:00 Sample Site Brachial, left 05/19/23 22:00 ABG pH 7.38 (7.35-7.45) 05/19/23 22:00 ABG pCO2 46.5 mmHg (35-45) H 05/19/23 22:00 ABG pO2 73.6 mmHg (80.0-100.0) L 05/19/23 22:00 ABG HCO3 27.6 mmol/L (22-26) H 05/19/23 22:00 ABG O2 Saturation 95.2 05/19/23 22:00 ABG Base Excess 2.0 mmol/L (-2.0-2.0) 05/19/23 22:00 Kevin Test N/a 05/19/23 22:00 A-a O2 Gradient 2.4 mmHg (5-10) L 05/19/23 22:00 Hematocrit 31.8 % (37-47) L 05/19/23 22:00 Hgb O2 Saturation 92.3 % (95-100) L 05/19/23 22:00 Carboxyhemoglobin 2.6 %THgb (0.4-20.1) 05/19/23 22:00 Methemoglobin 0.5 % (0.4-1.5) 05/19/23 22:00 Total Hemoglobin 10.4 g/dL (12-16) L 05/19/23 22:00 Sodium 142.0 mmol/L (131-143) 05/19/23 22:00 Potassium 3.5 mmol/L (3.5-5.0) 05/19/23 22:00 Glucose 90.0 mg/dL (70-115) 05/19/23 22:00 Ionized Calcium 1.2 mmol/L (1.1-1.4) 05/19/23 22:00 O2 Delivery Device Room air 05/19/23 22:00 FiO2 21.0 % 05/19/23 22:00 Biomechanical Engineer ID Amh 05/19/23 22:00 Sodium 141 mmol/L (136-145) 05/22/23 03:49 Potassium 3.2 mmol/L (3.5-5.1) L 05/22/23 03:49 Chloride 104 mmol/L (98-107) 05/22/23 03:49 Carbon Dioxide 28 mmol/L (22-29) 05/22/23 03:49 Anion Gap 12.2 (5-19) 05/22/23 03:49 BUN 6 mg/dL (8-23) L 05/22/23 03:49 Creatinine 0.6 mg/dL (0.5-0.9) 05/22/23 03:49 GFR Calculation 101.0 mL/min (90-130) 05/22/23 03:49 Glucose 85 mg/dL (65-115) 05/22/23 03:49 POC Glucose 100 mg/dL (70-110) 05/19/23 19:56 Estimat Average Glucose 103 05/19/23 19:05 Hemoglobin A1c 5.2 % (4.0-6.0) 05/19/23 19:05 Calculated Osmolality 289 mOsm/kg (285-295) 05/22/23 03:49 Lactic Acid 0.7 mmol/L (0.5-2.2) 05/19/23 19:05 Calcium 8.9 mg/dL (8.5-10.5) 05/22/23 03:49 Magnesium 1.8 mg/dL (1.7-2.3) 05/20/23 05:20 Total Bilirubin 0.2 mg/dL (0.15-1.2) 05/22/23 03:49 AST 11 U/L (0-32) 05/22/23 03:49 ALT 8 U/L (0-33) 05/22/23 03:49 Alkaline Phosphatase 173 U/L (35-105) H 05/22/23 03:49 C-Reactive Protein 78.0 mg/L (0.0-4.9) H 05/19/23 19:05 Total Protein 7.0 g/dL (6.6-8.7) 05/22/23 03:49 Albumin 3.5 g/dL (3.5-5.2) 05/22/23 03:49 Globulin 3.5 g/dL (1.3-4.6) 05/22/23 03:49 Procalcitonin 0.04 ng/mL (0-0.5) 05/19/23 19:05 TSH 0.30 uIU/mL (0.27-4.20) 05/19/23 19:05 Urine Color Yellow (Yellow) 05/19/23 22:30 Urine Appearance Sl hazy (CLEAR) A 05/19/23 22:30 Urine pH 6 (5-7) 05/19/23 22:30 Ur Specific Lyles 1.015 (1.005-1.030) 05/19/23 22:30 Urine Protein Neg (Negative) 05/19/23 22:30 Urine Glucose (UA) Norm (Normal) 05/19/23 22:30 Urine Ketones Negative (Negative) 05/19/23 22:30 Urine Blood Neg (Negative) 05/19/23 22:30 Urine Nitrate Negative (Negative) 05/19/23 22:30 Urine Bilirubin Neg (Negative) 05/19/23 22:30 Urine Urobilinogen Neg mg/dL (Negative) 05/19/23 22:30 Ur Leukocyte Esterase Trace (Negative) H 05/19/23 22:30 Urine RBC 5-10 /hpf (0-2) H 05/19/23 22:30 Urine WBC 10-15 /hpf (0-5) H 05/19/23 22:30 Ur Squamous Epith Cells 5-10 /hpf (0-5) H 05/19/23 22:30 Calcium Oxalate Crystal 5-10 /hpf H 05/19/23 22:30 Amorphous Sediment Not Reportable 05/19/23 22:30 Urine Bacteria 1+ /hpf (NONE) H 05/19/23 22:30 Urine Mucus 2+ /hpf 05/19/23 22:30 Vancomycin Trough 14.1 ug/mL (10-15) 05/21/23 23:40 Salicylates < 0.3 mg/dL (3-10) L 05/19/23 19:05 Urine Opiates Screen Negative ng/mL (Negative) 05/19/23 22:30 Acetaminophen < 5.0 ug/mL (10-30) L 05/19/23 19:05 Ur Barbiturates Screen Negative ng/mL (Negative) 05/19/23 22:30 Ur Phencyclidine Scrn Negative ng/mL (Negative) 05/19/23 22:30 Ur Amphetamines Screen Positive ng/mL (Negative) H 05/19/23 22:30 U Benzodiazepines Scrn Positive ng/mL (Negative) H 05/19/23 22:30 Urine Cocaine Screen Negative ng/mL (Negative) 05/19/23 22:30 U Marijuana (THC) Screen Positive ng/mL (Negative) H 05/19/23 22:30 Ethyl Alcohol < 10 mg/dL (0-10) 05/19/23 19:05 Vitals Last Vital Signs Temp 97.6 F 05/22/23 08:00 Pulse 89 05/22/23 11:34 Resp 18 05/22/23 11:34 BP 136/81 05/22/23 08:00 Pulse Ox 98 05/22/23 11:34 O2 Del Method Room Air 05/22/23 10:33 Discharge Plan Discharge Patient Disposition: Home Condition: Stable Prescriptions: New Bactrim DS 800-160 mg tablet 1 tab PO BID 14 Days Qty: 28 0RF levofloxacin 500 mg tablet 500 mg PO DAILY 7 Days Qty: 7 0RF itraconazole 100 mg Capsule 100 mg PO DAILY 4 Days Qty: 4 0RF Continued duloxetine [Cymbalta] 30 mg capsule,delayed release(DR/EC) 30 mg PO QAM fluticasone propionate 50 mcg/actuation spray,suspension 2 spray INTRANASAL DAILY promethazine 25 mg tablet 25 mg PO QID PRN (Reason: Nausea) montelukast [Singulair] 10 mg tablet 10 mg PO DAILY eletriptan [Relpax] 20 mg tablet 20 - 40 mg PO DAILY PRN (Reason: Migraine Headache) albuterol sulfate [Proventil HFA] 90 mcg/actuation HFA aerosol inhaler 2 puff INHALATION QID PRN (Reason: Shortness Of Breath) hydrocortisone [Procto-Med HC] 2.5 % cream with perineal applicator 1 applic WA DAILY PRN (Reason: Hemorrhoids) budesonide-formoterol [Symbicort] 80-4.5 mcg/actuation HFA aerosol inhaler 2 puff inhalation BID PRN (Reason: unknown) loratadine [Allergy Relief (loratadine)] 10 mg tablet 10 mg PO DAILY PRN (Reason: Allergy Symptoms) betamethasone valerate 0.1 % cream 1 applic topical BID PRN (Reason: unknown) gabapentin 800 mg tablet 800 mg PO TID 30 Days Qty: 90 0RF ibuprofen 800 mg tablet 800 mg PO TID PRN (Reason: pain) Qty: 60 0RF polyethylene glycol 3350 [Miralax] 17 gram Powder In Packet 17 g PO DAILY PRN (Reason: Constipation) omeprazole 40 mg capsule,delayed release(DR/EC) 40 mg PO BID Vitamin D2 1,250 mcg (50,000 unit) capsule 50,000 unit PO Q7D Rx Instructions: on thursday diclofenac sodium 1 % gel See Rx Instructions .ROUTE .COMPLEX Rx Instructions: APPLY TO AFFECTED AREA THREE TIMES DAILY TO FOUR TIMES DAILY NEEDED FOR BACK PAIN meloxicam 15 mg tablet 15 mg PO QAM Discharge Orders: Discharge Order (Routine); Ordered 05/22/23 Ordered By: Kushal Dunham Referrals: Jerzy Schafer MD [Primary Care Provider] - 05/29/23 2:15 pm Patient Instructions: Sulfamethoxazole/Trimethoprim (By mouth) (Bactrim, Bactrim DS,..., Itraconazole (By mouth) (Onmel, Sporanox, Tolsura), Levofloxacin (By mouth), Prevent Infections (GEN), Opioid Safety Discharge Attestations Time Spent in Discharge Care*: less than 30 min Quality Metrics Clinical Quality Measures [ No reported AMI, CVA or VTE this stay] Coding Level of Care Code Acute Code for [facility] Fwd Diagnoses Cellulitis L03.90 Altered mental status R41.82 Leg wound, right S81.801A Chronic low back pain M54.5; G89.29 Arthritis M19.90 Current every day smoker F17.200
== END 2023-05-22 12:09 | disposition home or self-care (01) | DRG 603 ==
LOC: ER 20:54 → MEDSURG 21:01
PROVIDERS: Admitting Provider Internal Medicine; Emergency Provider Emergency Medicine; PCP Family Medicine; Visit Provider Internal Medicine
DX: L03.116 Cellulitis of left lower limb (principal); L03.114 Cellulitis of left upper limb; N39.0 Urinary tract infection, site not specified; S81.802A Unspecified open wound, left lower leg, initial encounter; X58.XXXA Exposure to other specified factors, initial encounter; M19.90 Unspecified osteoarthritis, unspecified site; F17.210 Nicotine dependence, cigarettes, uncomplicated; F15.90 Other stimulant use, unspecified, uncomplicated; F12.90 Cannabis use, unspecified, uncomplicated; Z79.51 Long term (current) use of inhaled steroids; R51.9 Headache, unspecified; G89.29 Other chronic pain; M54.50 Low back pain, unspecified
CPT/HCPCS: 36415; 36416; 36600; 70450; 73201; 73701; 80048; 80051; 80053; 80202; 80306; 80307; 81001; 82330; 82805; 82962; 83036; 83605; 83735; 84145; 84443; 85025; 85651; 86140; 87040; 87086; 93926; 93931; 96365; 96367; 96372; 99285; J0692; J1644; J3370; J3372; J3490; J7030; J7050; Q9967

== ENCOUNTER 2024-04-06 11:18 | Outpatient (CLI) | payer MEDICAID, SELFPAY ==
--- NOTE | 2024-04-06 11:38 | USCV_ITS ---
Mounika Kenney Age: 64 Gender: F : 1960 Exam Date: 04/06/2024 11:44 Ordering Phys: Jerzy Schafer MD Technologist: Exam Location: [facility] [place] Indication: murmur BP: 120 / 70 HR: 110 Rhythm: Sinus Technical Quality: Adequate MEASUREMENTS (Male / Female) Normal Values 2D ECHO LV Diastolic Diameter PLAX 4.8 cm 4.2 - 5.9 / 3.9 - 5.3 cm IVS Diastolic Thickness 1.2 cm 0.6 - 1.0 / 0.6 - 0.9 cm IVS Systolic Thickness 2.0 cm LVPW Diastolic Thickness 1.2 cm 0.6 - 1.0 / 0.6 - 0.9 cm LVPW Systolic Thickness 1.7 cm LVOT Diameter 2.0 cm LV Ejection Fraction 2D Teich 66.8 % LV Ejection Fraction MOD 2C 80.4 % LV Ejection Fraction 2C AL 79.3 % LA Diameter 2.6 cm RA Systolic Volume 4C AL 31.5 ml RA Systolic Volume 4C MOD 31.3 ml LA Sys Volume AL 35.4 cm cubed LA Sys Volume Index AL 21.5 cm cubed/m squared Aorta at Sinotubular Diameter 3.4 cm IVC Diameter 1.4 cm M-MODE LA Ao Ratio MM 1.1 AV Cusp Separation MM 2.3 cm DOPPLER AV Peak Velocity 264.5 cm/s LVOT Peak Velocity 100.0 cm/s AV Area Cont Eq vti 1.4 cm squared AV Area Cont Eq pk 1.2 cm squared MV Peak Velocity 157.0 cm/s MV Area PHT 2.8 cm squared Mitral E to A Ratio 0.8 TV Peak Velocity 168.5 cm/s TR Peak Velocity 210.0 cm/s TR Peak Gradient 17.6 mmHg TV Peak E Velocity 69.0 cm/s Right Atrial Pressure 3.0 mmHg Pulmonary Artery Systolic Pressu 20.6 mmHg PV Peak Velocity 111.0 cm/s FINDINGS Left Ventricle Left ventricle is normal size. LV systolic function is normal with EF of 60 to 65%. No regional wall motion abnormalities are seen. Grade 1 diastolic dysfunction Right Ventricle Normal in size and function Right Atrium Normal in size Left Atrium Normal in size Mitral Valve Mild mitral annular calcification. Mild mitral regurgitation. Aortic Valve Aortic valve is thickened. Mild aortic stenosis with aortic valve area 1.4 cm2 and mean gradient of 11 mmHg Tricuspid Valve Mild tricuspid regurgitation. Insufficient TR jet to evaluate RVSP. Pulmonic Valve Not well visualized Pericardium Normal Aorta Normal in size. IVC Appears to be normal CONCLUSIONS LV systolic function is normal with EF of 60 to 65%. Grade 1 diastolic dysfunction Mild mitral regurgitation Mild aortic stenosis Mild tricuspid regurgitation No comparison studies are available. Huber Harvey MD (Electronically Signed) Final Date: 20 April 2024 19:32 S
== END 2024-04-06 11:19 | disposition home or self-care (01) ==
LOC: RAD 11:18
PROVIDERS: PCP Family Medicine; Visit Provider Family Medicine
DX: R01.1 Cardiac murmur, unspecified (principal); I50.30 Unspecified diastolic (congestive) heart failure; I34.0 Nonrheumatic mitral (valve) insufficiency; I07.1 Rheumatic tricuspid insufficiency; I35.0 Nonrheumatic aortic (valve) stenosis
CPT/HCPCS: 93306

== ENCOUNTER → 2025-03-03 18:09 | Outpatient (BNVA) | payer MEDICAID, SELFPAY | PROVIDERS: PCP Family Medicine | DX: R39.9 Unspecified symptoms and signs involving the genitourinary system (principal) | CPT/HCPCS: 81000 ==

== ENCOUNTER → 2025-09-25 14:37 | Outpatient (BNVA) | payer MEDICAID, SELFPAY | PROVIDERS: PCP Family Medicine; Visit Provider Emergency Medicine | DX: R30.0 Dysuria (principal); N12 Tubulo-interstitial nephritis, not specified as acute or chronic | CPT/HCPCS: 81000; 87077; 87086; 87184 ==